=== PATIENT | male | born 1945 | race Caucasian/White ===

== ENCOUNTER → 2023-05-22 07:51 | Outpatient (REF) | payer MEDICARE, SELFPAY ==
[2023-05-22 08:32] LABS: % Basophils 1.4 % (0-2); % Eosinophils 1.4 % (0-6); % Immature Granulocytes 0.7 % (0-0.5); % Lymphocytes 25.6 % (20.5-51.1); % Monocytes 9.5 % (1.7-9.3); % Neutrophils 61.4 % (42.2-75.2); Absolute Basophils 0.1 10^3/uL (0-0.2); Absolute Eosinophils 0.1 10^3/uL (0-0.7); Absolute Immature Granulocytes 0.1 10^3/uL (0-0.05); Absolute Lymphocytes 1.9 10^3/uL (1.2-3.4); Absolute Monocytes 0.7 10^3/uL (0.1-0.6); Absolute Neutrophils 4.5 10^3/uL (1.4-6.5); Hematocrit 43.2 % (39.0-52.0); Hemoglobin 14.6 g/dL (13.0-18.0); Mean Corp Hgb Conc. 33.8 g/dL (33.0-37.0); Mean Corpuscular Hgb 29.3 pg (27.0-31.0); Mean Corpuscular Volume 86.6 fL (80.0-94.0); Mean Platelet Volume 8.9 fL (7.4-10.4); Nucleated Red Blood Cells % 0 % (-); Platelet Count 306 10^3/uL (130-400); Red Blood Cell Count 4.99 10^6/uL (4.70-6.10); Red Cell Dist. Width 13.2 % (11.5-14.5); White Blood Cell Count 7.3 10^3/uL (4.8-10.8)
[2023-05-22 09:13] LABS: ALT (SGPT) 23 U/L (0-50); AST (SGOT) 32 U/L (17-59); Albumin 4.6 g/dl (3.5-5.0); Alkaline Phosphatase 62 U/L (38-126); Blood Urea Nitrogen 22 mg/dl (9-20); Carbon Dioxide 27 mmol/L (22-30); Chloride 103 mmol/L (98-107); Glucose 109 mg/dl (70-99); HDL Cholesterol 50 mg/dl; LDL Cholesterol, Calculated 139 mg/dl; Potassium 4.3 mmol/L (3.5-5.1); Sodium 135 mmol/L (135-145); Total Bilirubin 1.2 mg/dl (0.2-1.3); Total Cholesterol 202 mg/dl (50-199); Total Protein 7.2 g/dl (6.3-8.2); Triglyceride 69 mg/dl (10-149); Very Low Density Lipoprotein 13 mg/dl (0-30); eGFR > 60.00
[2023-05-22 09:38] LABS: PSA, Total - Screen 0.89 ng/ml (0.0-4.0)
[2023-05-22 09:39] LABS: Glycohemoglobin (HgbA1c) 6.9 % (4.0-5.6)
== END ==
LOC: REG 07:51
PROVIDERS: ATTENDING PHYSICIAN Internal Medicine
DX: E78.5 Hyperlipidemia, unspecified (principal); E11.59 Type 2 diabetes mellitus with other circulatory complications; I10 Essential (primary) hypertension; Z00.00 Encounter for general adult medical examination without abnormal findings; Z12.5 Encounter for screening for malignant neoplasm of prostate
CPT/HCPCS: 36415; 80053; 80061; 83036; 85025; G0103

== ENCOUNTER → 2023-10-02 07:31 | Outpatient (REF) | payer MEDICARE, SELFPAY ==
[2023-10-02 09:25] LABS: ALT (SGPT) 18 U/L (0-50); AST (SGOT) 30 U/L (17-59); Albumin 4.6 g/dl (3.5-5.0); Alkaline Phosphatase 55 U/L (38-126); Direct Bilirubin 0.2 mg/dl (0.0-0.4); Glucose 107 mg/dl (70-99); Total Bilirubin 1.1 mg/dl (0.2-1.3); Triglyceride 65 mg/dl (10-149); Very Low Density Lipoprotein 13 mg/dl (0-30)
[2023-10-02 09:43] LABS: HDL Cholesterol 43 mg/dl; LDL Cholesterol, Calculated 121 mg/dl; Total Cholesterol 177 mg/dl (50-199)
[2023-10-02 10:41] LABS: Glycohemoglobin (HgbA1c) 6.8 % (4.0-5.6)
== END ==
LOC: REG 07:31
PROVIDERS: ATTENDING PHYSICIAN Internal Medicine
DX: E11.59 Type 2 diabetes mellitus with other circulatory complications (principal); I10 Essential (primary) hypertension; E78.5 Hyperlipidemia, unspecified
CPT/HCPCS: 36415; 80061; 80076; 82947; 83036

== ENCOUNTER → 2024-03-25 08:54 | Outpatient (REF) | payer MEDICARE, SELFPAY ==
[2024-03-25 11:07] LABS: ALT (SGPT) 21 U/L (0-50); AST (SGOT) 29 U/L (17-59); Albumin 4.7 g/dl (3.5-5.0); Alkaline Phosphatase 58 U/L (38-126); Glucose 109 mg/dl (70-99); HDL Cholesterol 45 mg/dl; LDL Cholesterol, Calculated 134 mg/dl; Total Cholesterol 198 mg/dl (50-199); Total Protein 7.1 g/dl (6.3-8.2); Triglyceride 98 mg/dl (10-149); Very Low Density Lipoprotein 19 mg/dl (0-30)
[2024-03-25 11:16] LABS: Glycohemoglobin (HgbA1c) 6.8 % (4.0-5.6)
== END ==
LOC: REG 08:54
PROVIDERS: ATTENDING PHYSICIAN Internal Medicine
DX: E11.59 Type 2 diabetes mellitus with other circulatory complications (principal); I10 Essential (primary) hypertension; E78.5 Hyperlipidemia, unspecified
CPT/HCPCS: 36415; 80061; 80076; 82947; 83036

== ENCOUNTER → 2024-06-12 09:06 | Outpatient (REF) | payer MEDICARE, SELFPAY ==
[2024-06-12 10:16] LABS: % Eosinophils 1.5 % (0-6); % Immature Granulocytes 0.9 % (0-0.5); % Lymphocytes 27.7 % (20.5-51.1); % Monocytes 7.6 % (1.7-9.3); % Neutrophils 61.3 % (42.2-75.2); Absolute Basophils 0.1 10^3/uL (0-0.2); Absolute Eosinophils 0.1 10^3/uL (0-0.7); Absolute Immature Granulocytes 0.1 10^3/uL (0-0.05); Absolute Lymphocytes 2.2 10^3/uL (1.2-3.4); Absolute Monocytes 0.6 10^3/uL (0.1-0.6); Absolute Neutrophils 4.8 10^3/uL (1.4-6.5); Hemoglobin 13.9 g/dL (13.0-18.0); Mean Corp Hgb Conc. 33.9 g/dL (33.0-37.0); Mean Corpuscular Volume 85.4 fL (80.0-94.0); Mean Platelet Volume 8.9 fL (7.4-10.4); Nucleated Red Blood Cells % 0 % (-); Platelet Count 364 10^3/uL (130-400); Red Cell Dist. Width 13.6 % (11.5-14.5); White Blood Cell Count 7.8 10^3/uL (4.8-10.8)
[2024-06-12 10:45] LABS: ALT (SGPT) 22 U/L (0-50); AST (SGOT) 27 U/L (17-59); Albumin 4.3 g/dl (3.5-5.0); Alkaline Phosphatase 57 U/L (38-126); Blood Urea Nitrogen 23 mg/dl (9-20); Calcium 10.7 mg/dl (8.4-10.2); Carbon Dioxide 24 mmol/L (22-30); Chloride 106 mmol/L (98-107); Glucose 116 mg/dl (70-99); HDL Cholesterol 38 mg/dl; LDL Cholesterol, Calculated 105 mg/dl; Potassium 4.8 mmol/L (3.5-5.1); Sodium 141 mmol/L (135-145); Total Bilirubin 0.9 mg/dl (0.2-1.3); Total Cholesterol 161 mg/dl (50-199); Triglyceride 94 mg/dl (10-149); Very Low Density Lipoprotein 18 mg/dl (0-30); eGFR > 60.00
[2024-06-13 08:29] LABS: PSA Total 1.3 ng/mL (0.0-4.0)
== END ==
LOC: RAD 09:06
PROVIDERS: ATTENDING PHYSICIAN Internal Medicine
DX: E11.59 Type 2 diabetes mellitus with other circulatory complications (principal); E78.1 Pure hyperglyceridemia; E78.5 Hyperlipidemia, unspecified; I10 Essential (primary) hypertension; E66.3 Overweight; Z12.5 Encounter for screening for malignant neoplasm of prostate
CPT/HCPCS: 36415; 80053; 80061; 83036; 84153; 84154; 85025

== ENCOUNTER 2024-08-13 23:31 | Observation (INO) | payer MEDICARE, SELFPAY ==
[2024-08-13 20:14] VITALS: BP 98/54; BMI 23.2
--- NOTE | 2024-08-13 21:18 | ED.GENMED ---
History of Present Illness
General
Chief Complaint: Fall
Source: family and ambulance crew
Exam Limitations: clinical condition
Time Seen by Provider: 08/13/24 21:13
History of Present Illness
History of Present Illness:
See MDM
Past History
Past History
ED Past Medical History: HTN and Other (Dementia)
ED Past Surgical History: None
Social History
Personal:
Phy Exam
Physical Exam
Physical Exam:
See MDM
Course
Orders/Labs/Results
Orders:
Orders
08/13/24 21:17
Electrocardiogram (*1) Urgent
Reason for Study: Fatigue / Weakness
CT Head W/o Iv Contrast Urgent
Comment:
Reason For Exam: Fall, altered
EKG- Treatment ONCE
Urinalysis Reflex To Culture Urgent
08/13/24 21:26
Complete Blood Count/With Diff Urgent
Comprehensive Metabolic Panel Urgent
Abnormal Lab Results
08/13/24
21:26
WBC 11.9 H 10^3/uL
(4.8-10.8)
RBC 4.14 L 10^6/uL
(4.70-6.10)
Hgb 12.0 L g/dL
(13.0-18.0)
Hct 35.6 L %
(39.0-52.0)
Abs Immat Gran (auto) 0.1 H 10^3/uL
(0-0.05)
Absolute Neuts (auto) 9.4 H 10^3/uL
(1.4-6.5)
Absolute Monos (auto) 0.7 H 10^3/uL
(0.1-0.6)
Immature Gran % 0.7 H %
(0-0.5)
Neutrophils % 79.3 H %
(42.2-75.2)
Lymphocytes % 13.1 L %
(20.5-51.1)
BUN 24 H mg/dl
(9-20)
Glucose 133 H mg/dl
(70-99)
Calcium 10.3 H mg/dl
(8.4-10.2)
08/13/24 21:26
08/13/24 21:26
Vital Signs
Initial and Last Documented VS:
Initial Vital Signs
Temp Pulse Resp BP Pulse Ox
98.1 F 61 15 98/54 96
08/13/24 20:14 08/13/24 20:14 08/13/24 20:14 08/13/24 20:14 08/13/24 20:14
Last Documented Vital Signs
Temp Pulse Resp BP Pulse Ox
98.1 F 57 15 98/54 96
08/13/24 20:14 08/13/24 20:14 08/13/24 20:14 08/13/24 20:14 08/13/24 20:14
MDM/Problems Addressed
Differential Diagnosis Includes:
HPI and MDM Narrative:
79-year-old male presenting for evaluation of altered mental status. at bedside stating that they went for a walk earlier today. He had 2 falls. She does not think that he hit his head. Regardless, when they got home, patient sat on the
couch and became increasingly hard to arouse. On arrival, patient was able to get off the stretcher and walk to the bed. Since then, he has been sleeping in his bed and very difficult to arouse. With very hard sternal rubbing, patient will move
quickly and move both hands. He quickly goes back to bed.
Given his altered mental status, will obtain CT head. No obvious extremity deformity noted. Will obtain basic blood work and for any evidence of metabolic abnormality. Will obtain urinalysis as well
Physical exam
General: Sleeping in bed
HEENT: protecting airway. Pupils equal reactive
Neck: supple
CV: No evidence of cyanosis
Resp: No accessory muscle use
Abd: Non-distended
Extremities: No deformities
Neuro: Sleeping. Wakes up to painful stimuli but quickly back to bed. Appears to be moving all 4 extremities when awake
Psych: Flat affect
Skin: Intact
Problems Addressed including Acute and Chronic Conditions affecting care:
1. Altered mental status
Acuity: acute
Prognosis: stable
Details: Given the fall, will obtain CT head. Will obtain basic blood work and urinalysis. Will ultimately require admission given his altered mental status
Updates
CT head negative. Blood work without clinically relevant abnormality. UA pending but will admit based on his altered mental status and increased sleepiness
Differential Diagnosis (but not limited to): Intracranial hemorrhage, stroke, hyponatremia
Testing considered: Blood cultures but he is afebrile
Drug therapy (if applicable): OTC meds, please see d/c instruction regarding Rx drugs
Amount and/or Complexity of Data Reviewed
Clinical info obtained from:
External data reviewed: N/A
Labs I independently reviewed (but not limited to): Mild leukocytosis
Radiology: The CT scan was personally and independently reviewed. In addition, official CT report reviewed.
Pulse Ox: not hypoxic
EKG independently reviewed: Sinus bradycardia, normal axis, no STEMI
[employer] Specialist: Sinus rhythm
Critical Care: N/A
Risk of Complication:
Social Determinants of health: Good social support
Discussed with other providers: Hospitalist
Escalation of Care includes Admit/Obs: Given his altered mental status, will admit
Occasional wrong word or 'sound a like' substitutions may have occurred due to the inherent limitations of voice recognition software. Read the chart carefully and recognize, using context, where substitutions have occurred.
*Critical Care Note
Total Time (30-74mins, 75-104mins- exclusive of procedures): Not Applicable
ED Attending Note
-
Portions of this chart may have been created with voice recognition software.� Occasional wrong word or��sound alike� substitutions may have occurred due to the inherent limitations of voice recognition software.
Discharge Plan
Departure
Patient Disposition: Admit
Date of Disposition: 08/13/24
Time of Disposition: 22:18
Admit to: Med/Surg
Presentation/result/management discussed w/ accepting MD/DO: Hospitalist
Discharge Problem:
Altered mental status
Referrals:
Mandeep Jones MD [Family Provider, Internal Medicine]
Interventions
Interventions:
*Risk Screen - Suicide Last Done: 08/13/24 20:14
*General Assessment Last Done: 08/13/24 20:14
*Neglect/Abuse Screening Last Done: 08/13/24 20:14
ED- Neurological Assessment Last Done: 08/13/24 21:20
ED-Skin Assessment Last Done: 08/13/24 20:14
Discharge Date and Time
Print Language: SWEDISH
[2024-08-13 21:32] LABS: % Basophils 0.7 % (0-2); % Eosinophils 0.3 % (0-6); % Immature Granulocytes 0.7 % (0-0.5); % Lymphocytes 13.1 % (20.5-51.1); % Monocytes 5.9 % (1.7-9.3); % Neutrophils 79.3 % (42.2-75.2); Absolute Basophils 0.1 10^3/uL (0-0.2); Absolute Immature Granulocytes 0.1 10^3/uL (0-0.05); Absolute Lymphocytes 1.6 10^3/uL (1.2-3.4); Absolute Monocytes 0.7 10^3/uL (0.1-0.6); Absolute Neutrophils 9.4 10^3/uL (1.4-6.5); Hematocrit 35.6 % (39.0-52.0); Mean Corp Hgb Conc. 33.7 g/dL (33.0-37.0); Mean Platelet Volume 9.3 fL (7.4-10.4); Nucleated Red Blood Cells % 0 % (-); Platelet Count 295 10^3/uL (130-400); Red Blood Cell Count 4.14 10^6/uL (4.70-6.10); Red Cell Dist. Width 14.2 % (11.5-14.5); White Blood Cell Count 11.9 10^3/uL (4.8-10.8)
[2024-08-13 21:49] LABS: ALT (SGPT) 18 U/L (0-50); AST (SGOT) 22 U/L (17-59); Albumin 4.3 g/dl (3.5-5.0); Alkaline Phosphatase 44 U/L (38-126); Blood Urea Nitrogen 24 mg/dl (9-20); Calcium 10.3 mg/dl (8.4-10.2); Carbon Dioxide 22 mmol/L (22-30); Chloride 107 mmol/L (98-107); Estimated Creatinine Clearance 50 ml/min; Glucose 133 mg/dl (70-99); Potassium 4.8 mmol/L (3.5-5.1); Sodium 135 mmol/L (135-145); Total Bilirubin 0.8 mg/dl (0.2-1.3); Total Protein 6.6 g/dl (6.3-8.2); eGFR 55.53
--- NOTE | 2024-08-13 22:19 | HPS.HSE ---
Addendum entered and electronically signed by Bigg Chapman DO 08/13/24 23:59:
Patient seen and examined independently. Agree with findings and plan as set forth by DEV Billings.
Patient is an 79y M with PMH significant for hypertension, DM-II and dementia with behavioral disturbance who presents to ED for evaluation of poor responsiveness. History obtained from at the bedside. notes that patient had fall x 2
today while walking their dogs in the grass. No evident / significant injury at the time. No LOC or witnessed head impact. They returned home and patient fell asleep on the couch. Some time later, went to check on patient and was unable to
wake him. 911 ws called and patient brought to the ED for further evaluation.
In the ED, patient is unresponsive at times - with only grimace / slight movement to noxious stimuli. At other times (as when staff attempting to change him), he becomes fully awake, agitated and combative.
states that patient has been having increasing memory issues and change in behavior over the past 6-9 months. He is aggressive at home at times.
His PCP started him on risperidone about 3 weeks ago. He seems more calm with this medication; however, he sometimes refuses his dose. He did take this last PM.
Ass:
Altered Level of Consciousness
Senile Dementia with Behavioral Disturbance
Fall
Benign Hypertension
DM-II
OAB
Plan:
Admit for further evaluation and treatment.
CT head in the ED with atrophy but no acute findings.
Fluctuating level of consciousness appreciated in the ED with agitation at times.
Hold antihypertensive medications given low normal BP.
Follow glucose and cover with SSI if needed (on no meds for DM at home).
Monitor for agitation - Zyprexa PRN.
Psych evaluation for additional recommendations.
Follow for any new / focal symptoms.
Original Note:
Family Physician
-
Family Physician: Keaton Jones
Chief Complaint
-
altered mental status
History of Present Illness
Patient is a 79-year-old male with past medical history significant for hypertension, overactive bladder, type 2 diabetes and high triglycerides who presented to [facility] ED for evaluation of altered mental status. Patient is somnolent and at
bedside who assist with HPI. She reports that over the past 6-9 months patient has increased memory and behaviors and she believes he has undiagnosed dementia. Patient today was on a walk with spouse and dogs when he had 2 mechanical falls, with
difficulty getting up, spouse was able to assist him up and got him home where he had a difficult time getting up from sitting position and had some generalized weakness when walking. She describes a more shuffled gait today. In the last several
weeks to months she has observed patient unplugging anything with lights on at night (i.e red light on TV when off, her hearing aides when charging, etc.), pouring milk over cheez-it's to eat like cereal and not wanting trash can at street despite
it being full and awaiting seed cone picker later that day. She reports aggressive behaviors that were happening almost daily where he would act like he was going to punch or would shove her, behavior would resolve within minutes generally. Primary care
prescribed risperidone 0.5mg qHS and spouse has noticed improvement in behaviors to a few times a week verse daily but does report some nights he gives her a hard time and will not take the medication. She denies any recent illness, fever, chills,
cough, shortness of breath, chest pain, nausea, vomiting, constipation, diarrhea or urinary symptoms.
Medical History
Past Medical History
Past Medical History: Reports Other
Additional Past Medical History:
hypertension
overactive bladder
high triglycerides
type 2 diabetes
Past Surgical History: Reports None
Social History
Tobacco: Non-smoker
Personal:
Living: With Family
Family History
Family History: Not pertinent
Allergies / Home Medications
Allergies reflects when Allergies were last updated in [facility].
Home Medications with original date entered in [facility]
Allergy/Medication List:
Allergies
Allergy/AdvReac Type Severity Reaction Status Date / Time
NKA - No Known Allergies Allergy Unknown Uncoded 06/02/22 20:13
Home Medications
aspirin 81 mg tablet,delayed release 81 mg DAILY 08/13/24
fenofibrate 08/13/24
losartan 08/13/24
oxybutynin 3.9 mg/24 hour transdermal 4 day patch 08/13/24
risperidone 0.5 mg tablet 0.5 mg HS 08/13/24
Review of Systems
-
History Source: Patient
Constitutional: Reports No Symptoms
EENT: Reports No Symptoms
Respiratory: Reports No Symptoms
Cardiac: Reports No Symptoms
Abdomen/GI: Reports No Symptoms
: Reports No Symptoms
Musculoskeletal: Reports Other (abnormal gait with 2 falls today )
Skin: Reports No Symptoms
Neurological: Reports No Symptoms
Endocrine: Reports No Symptoms
Hematologic/Lymphatic: Reports No Symptoms
Psych: Reports Anxiety, Dementia and Other (aggressive behaviors with spouse and ED staff )
Physical Exam
Vital Signs
Vital Signs
Temp Pulse Resp BP Pulse Ox
98.1 F 57 15 98/54 96
08/13/24 20:14 08/13/24 20:14 08/13/24 20:14 08/13/24 20:14 08/13/24 20:14
Physical Exam
General: Well Developed, Well Nourished, No Apparent Distress and Slurred Speech
HEENT: NormoCephalic, Moist mucous membranes, Atraumatic, Nose Appears Normal and Ears Appear Normal
Respiratory: Clear
Cardiac: S1/S2 and Regular Rhythm; No Murmur or Rub
Breast: Deferred by me
GI: Soft, Non Tender, Non Distended and Normal Bowel Sounds; No Organomegaly
Rectal: Deferred by Provider
Genito-urinary: Deferred by me
Musculoskeletal: No Clubbing, No Cyanosis and No Edema
Skin: Warm, Dry and IV/Catheter Site
Neuro: Sedated (difficult to arouse)
Psych: Agitated (aggressive with staff when able to arouse )
Laboratory Results
-
08/13/24 21:26
08/13/24:
Laboratory Results
Total Bilirubin 0.8 mg/dl (0.2-1.3) 08/13/24:
AST 22 U/L (17-59) 08/13/24:
ALT 18 U/L (0-50) 08/13/24:
Alkaline Phosphatase 44 U/L (38-126) 08/13/24:
Data Reviewed
-
CT Scan: Report Reviewed by me (Head: No acute intracranial abnormalities. Findings again seen compatible with diffuse cortical atrophy with nonspecific white matter changes as described above.)
Medical Tests (Nuc Med, Echo, EKG etc): Report Reviewed by me (EKG; SINUS BRADYCARDIA WITH 1ST DEGREE A-V BLOCK OTHERWISE NORMAL ECG)
Lab Data: Labs Reviewed by me (BUN 24, Creat 1.3, est CrCl 50, eGFR 55.53)
Impression/Plan
-
IMPRESSION/PLAN:
#altered mental status
Head CT: No acute intracranial abnormalities.
Findings again seen compatible with diffuse cortical atrophy with nonspecific white matter changes as described above.
EKG: SINUS BRADYCARDIA WITH 1ST DEGREE A-V BLOCK
OTHERWISE NORMAL ECG
- Admit to med/surg
- Consult Psych
- PRN Haldol and Zyprexa for agitation
#hypertension
- continue losartan
#overactive bladder
- continue oxybutynin
#high triglycerides
- continue fenofibrate
#type 2 diabetes
- diet controlled
Code status: DNR
DVT prophylaxis: Lovenox sq
[2024-08-13 22:20] VITALS: BP 146/76
[2024-08-13 23:01] VITALS: BP 90/60
--- NOTE | 2024-08-13 23:19 | EDRN ---
Jason Del Real [facility] [phone].
[2024-08-14] VITALS (9 sets, daily range): BP systolic 81–120; BP diastolic 49–64; PULSE 74; BMI 22.3
[2024-08-14] MEDS: NSS 1000 IV ×2 (00:18→09:07)
[2024-08-14 06:22] LABS: Hematocrit 35.8 % (39.0-52.0); Hemoglobin 11.8 g/dL (13.0-18.0); Mean Platelet Volume 9.2 fL (7.4-10.4); Platelet Count 287 10^3/uL (130-400); Red Blood Cell Count 4.07 10^6/uL (4.70-6.10); Red Cell Dist. Width 14.5 % (11.5-14.5); White Blood Cell Count 8.9 10^3/uL (4.8-10.8)
[2024-08-14 07:19] LABS: Blood Urea Nitrogen 23 mg/dl (9-20); Calcium 9.8 mg/dl (8.4-10.2); Carbon Dioxide 20 mmol/L (22-30); Chloride 111 mmol/L (98-107); Estimated Creatinine Clearance 59 ml/min; Glucose 95 mg/dl (70-99); Sodium 137 mmol/L (135-145); eGFR > 60.00
[2024-08-14 08:58] LABS: Urine Albumin 1+ (Neg - Trace); Urine Bilirubin Negative (Negative); Urine Character Clear (Clear); Urine Color Yellow; Urine Glucose Negative (Negative); Urine Ketone Negative (Negative); Urine Leukocyte Negative (Negative); Urine Nitrite Negative (Negative); Urine Occult Blood Negative (Negative); Urine Urobilinogen Negative (Neg - 1+)
[2024-08-14] MEDS: ASPIR LOW (ENTERIC COATED) 81 MG PO (09:07)
[2024-08-14 09:14] LABS: Urine Hyaline Cast 0-2 /LPF (0-2); Urine Squamous Cell 0-2 /LPF (Few)
[2024-08-14 09:15] LABS: Urine Red Blood Cell 0-2 /HPF (0-2); Urine White Cell 0-2 /HPF (0-5)
--- NOTE | 2024-08-14 11:15 | CS.PSYCHR ---
Consult Summary - Psychiatry
-
Pt is an 79 y0 male PMH of hypertension, DM-II and dementia with behavioral disturbance who presented to ED for evaluation of poor responsiveness. provided history, reported that patient had fall x 2 while walking their dogs in the grass,
with no apparent injury. Pt later sleeping on the couch and unable to wake him. In the ED, patient noted to be mostly unresponsive at times, then at other times becomes fully awake, agitated and combative.
reported pt has had increasing memory issues and change in behavior over the past 6-9 months. PCP reportedly started pt on Risperidone about 3 weeks ago, with some improvement, more calm. QTc 419 on 08/13/24.
Pt seen, awake, alert, calm, sitting up in chair, making eye contact. Pt shook my hand, was cooperative, tried to answer questions, but speech was incoherent, rambling. Pt unable to give an meaningful information.
Psych Hx: no noted
SH: , living with
MSE: awake/alert, sensorium appears intact, making good eye contact, answering but unable to give any meaningful information, rambling/irrelevant content. No agitation at present. Mood/affect stable.
Imp: Dementia, progressive, with behavior disturbance; R/o superimposed delirium
Rec: agree with continuing Risperidone. Zyprexa IM could be helpful for agitation if po med refused- dose range 2.5 to 5 mg Q 6 to 8 hours.
Will follow
--- NOTE | 2024-08-14 12:34 | CM ---
Reviewed the chart notes and spoke with the patient's spouse via telephone. The patient is admitted under observational status. The [employer] letter was explained to the spouse and a copy left with the patient's belongings in the room. The patient's
spouse had no questions with regards to the letter.
The patient resides with his spouse in a split level home with five steps to enter via front door. The patient's spouse reports no DME/VN/SNF in the past. The patient's pharmacy of choice is the [facility]. continues to be
available to patient/family and is monitoring medical plan for needs at discharge.
Plan: Discharge plans will depend on the patient's progress.
--- NOTE | 2024-08-14 14:52 | W.DCSUMMARY ---
Discharge Summary
Discharge Data
Date of Admission: 08/13/24
Date of Discharge: 08/14/24
Total time spent discharging patient (in min): 40
-
Pending Results: No
Hospital Course
Mr. Blunt is an 79-year-old male with a medical history of dementia with behavioral disturbance and hypertension who presented after an episode of decreased responsiveness at home. He had multiple falls at home earlier in the day on their lawn
while walking the dogs. He did not lose consciousness or hit his head during those falls. Later in the day the patient was asleep on the couch and his was unable to wake him up which prompted her to call EMS. He has had increasing memory
loss and associated behavioral disturbances over the past 6 to 9 months. He was recently started on risperidone by his PCP approximately 3 weeks prior to this admission. Reportedly, he has been calmer since starting risperidone. CT imaging of his
brain in the ED shows no acute abnormalities. His labs were generally normal except for a mild leukocytosis of 12,000 which resolved on repeat without any specific interventions other than a liter of normal saline. His blood pressure was on the
low side with a systolic blood pressure around 100 and so his home losartan was held. He remained agitated and somnolent but arousable the evening of admission. However, the next morning he was awake and alert. He was conversational and
cooperative with staff although he was significantly confused which is his reported baseline recently. He was evaluated by psychiatry while inpatient who recommended continuing risperidone. This episode is likely a progression of his known
dementia. It would be reasonable to monitor him off of his blood pressure medications at this time in order to minimize hypotension and falls. His oxybutynin was also held as it can contribute to mental status changes. The need for these
medications can be reevaluated in outpatient setting by his primary care physician. He was evaluated by physical therapy during this hospitalization who felt he had no skilled needs at this time. He is medically stable for discharge to home.
General: No Apparent Distress, Comfortable and Conversant
HEENT: NormoCephalic, Moist mucous membranes, Atraumatic
Respiratory: Clear and Non Labored Respirations
Cardiac: S1/S2 and Regular Rhythm; No Rub or Gallop
GI: Soft, Non Tender, Non Distended and Normal Bowel Sounds
Musculoskeletal: No Edema, no deformity
: NO Duval
Neuro: Awake, Alert, confused
Psych: Calm, cooperative
Discharge Plan
-
Patient Disposition: Home (Routine Discharge)
Discharge Diagnosis/Procedures: Acute metabolic encephalopathy
Diet: Regular
Activity: As tolerated
Activity Restrictions/Additional Instructions:
Mr. Blunt is an 79-year-old male with a medical history of dementia with behavioral disturbance and hypertension who presented after an episode of decreased responsiveness at home. He had multiple falls at home earlier in the day on their lawn
while walking the dogs. He did not lose consciousness or hit his head during those falls. Later in the day the patient was asleep on the couch and his was unable to wake him up which prompted her to call EMS. He has had increasing memory
loss and associated behavioral disturbances over the past 6 to 9 months. He was recently started on risperidone by his PCP approximately 3 weeks prior to this admission. Reportedly, he has been calmer since starting risperidone. CT imaging of his
brain in the ED shows no acute abnormalities. His labs were generally normal except for a mild leukocytosis of 12,000 which resolved on repeat without any specific interventions other than a liter of normal saline. His blood pressure was on the
low side with a systolic blood pressure around 100 and so his home losartan was held. He remained agitated and somnolent but arousable the evening of admission. However, the next morning he was awake and alert. He was conversational and
cooperative with staff although he was significantly confused which is his reported baseline recently. He was evaluated by psychiatry while inpatient who recommended continuing risperidone. This episode is likely a progression of his known
dementia. It would be reasonable to monitor him off of his blood pressure medications at this time in order to minimize hypotension and falls. His oxybutynin was also held as it can contribute to mental status changes. The need for these
medications can be reevaluated in outpatient setting by his primary care physician. He was evaluated by physical therapy during this hospitalization who felt he had no skilled needs at this time. He is medically stable for discharge to home.
Referrals:
Mandeep Jones MD [Family Provider, Internal Medicine]
Prescriptions:
Continued
aspirin 81 mg Tablet,Delayed Release (Dr/Ec)
81 mg DAILY
risperidone 0.5 mg Tablet
0.5 mg HS
fenofibrate
Held
oxybutynin 3.9 mg/24 hour Patch 4 Day
Hold Instructions: Hold for now as it can contribute to mental status changes, can be restarted if appropriate after consultation with PCP or urologist
losartan
Hold Instructions: Hold for now until outpatient monitoring of blood pressure, can restart as needed
Discharge Orders:
Discharge Patient (As Directed); Ordered 08/14/24
Ordered By: Jose R Cheney
Discharge Date and Time
Print Language: KENYAN
--- NOTE | 2024-08-15 07:20 | EDRN ---
No nursing care provided to this pt by this nurse
== END 2024-08-14 15:40 | disposition home or self-care (01) ==
LOC: 2 NORTH 23:31
PROVIDERS: Nurse Practitioner Family; ADMITTING PHYSICIAN Hospitalist; ATTENDING PHYSICIAN Internal Medicine; EMERGENCY PHYSICIAN Student in an Organized Health Care Education/Training Program; FAMILY PHYSICIAN Internal Medicine; OTHER PHYSICIAN Psychiatry & Neurology Psychiatry
DX: G93.41 Metabolic encephalopathy (principal); F03.918 Unspecified dementia, unspecified severity, with other behavioral disturbance; R53.83 Other fatigue; R53.1 Weakness; R29.6 Repeated falls; F03.911 Unspecified dementia, unspecified severity, with agitation; N32.81 Overactive bladder; I10 Essential (primary) hypertension; R26.9 Unspecified abnormalities of gait and mobility; G31.9 Degenerative disease of nervous system, unspecified; E78.1 Pure hyperglyceridemia; R00.1 Bradycardia, unspecified; E11.9 Type 2 diabetes mellitus without complications; W01.0XXA Fall on same level from slipping, tripping and stumbling without subsequent striking against object, initial encounter; Y93.K1 Activity, walking an animal; Y92.89 Other specified places as the place of occurrence of the external cause; Z91.148 Patient's other noncompliance with medication regimen for other reason; Z79.82 Long term (current) use of aspirin; Z79.899 Other long term (current) drug therapy; Z66 Do not resuscitate
CPT/HCPCS: 70450; 80048; 80053; 81003; 81015; 85025; 85027; 87086; 93005; 97162; 99285; G0378

== ENCOUNTER 2024-08-29 21:10 | Emergency (ER) | payer MEDICARE, SELFPAY ==
[2024-08-29 21:18] VITALS: BP 124/73
[2024-08-29 21:20] VITALS: BMI 22.6
[2024-08-29 21:48] LABS: % Basophils 1.1 % (0-2); % Eosinophils 1.8 % (0-6); % Immature Granulocytes 1.2 % (0-0.5); % Lymphocytes 27.7 % (20.5-51.1); % Monocytes 9.5 % (1.7-9.3); % Neutrophils 58.7 % (42.2-75.2); Absolute Basophils 0.1 10^3/uL (0-0.2); Absolute Eosinophils 0.2 10^3/uL (0-0.7); Absolute Immature Granulocytes 0.1 10^3/uL (0-0.05); Absolute Lymphocytes 2.6 10^3/uL (1.2-3.4); Absolute Monocytes 0.9 10^3/uL (0.1-0.6); Absolute Neutrophils 5.6 10^3/uL (1.4-6.5); Hematocrit 37.3 % (39.0-52.0); Hemoglobin 12.9 g/dL (13.0-18.0); Mean Corp Hgb Conc. 34.6 g/dL (33.0-37.0); Mean Corpuscular Hgb 29.5 pg (27.0-31.0); Mean Corpuscular Volume 85.4 fL (80.0-94.0); Mean Platelet Volume 8.9 fL (7.4-10.4); Nucleated Red Blood Cells % 0 % (-); Platelet Count 292 10^3/uL (130-400); Red Blood Cell Count 4.37 10^6/uL (4.70-6.10); Red Cell Dist. Width 14.6 % (11.5-14.5); White Blood Cell Count 9.5 10^3/uL (4.8-10.8)
[2024-08-29 21:59] LABS: ALT (SGPT) 18 U/L (0-50); AST (SGOT) 23 U/L (17-59); Albumin 4.6 g/dl (3.5-5.0); Alkaline Phosphatase 52 U/L (38-126); Blood Urea Nitrogen 15 mg/dl (9-20); Calcium 10.7 mg/dl (8.4-10.2); Carbon Dioxide 24 mmol/L (22-30); Chloride 105 mmol/L (98-107); Estimated Creatinine Clearance 63 ml/min; Glucose 136 mg/dl (70-99); Potassium 4.3 mmol/L (3.5-5.1); Sodium 137 mmol/L (135-145); Total Bilirubin 0.7 mg/dl (0.2-1.3); Total Protein 7.1 g/dl (6.3-8.2); eGFR > 60.00
--- NOTE | 2024-08-30 00:08 | EDRN ---
Patient changed into scrubs since his clothes were soiled, patient in a wheelchair and wheeled out with who will be taking him home.
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
--- NOTE | 2024-08-30 10:07 | CM ---
Received CM consult from overnight, I called and spoke to pt's Julia. Per Julia this is the first time pt has left the house at night. She has been looking in to LTC, has toured [facility] and has an application. Her daughter in law also
gave her information from [facility]. I gave her the number for [facility] and also [facility].
She plans to continue to research LTC facilities in the area.
== END 2024-08-30 00:14 | disposition home or self-care (01) ==
LOC: EMR 21:10
PROVIDERS: Nurse Practitioner; EMERGENCY PHYSICIAN Student in an Organized Health Care Education/Training Program; FAMILY PHYSICIAN Internal Medicine
DX: F03.90 Unspecified dementia, unspecified severity, without behavioral disturbance, psychotic disturbance, mood disturbance, and anxiety (principal); I10 Essential (primary) hypertension
CPT/HCPCS: 99284; 70450; 80053; 85025

== ENCOUNTER 2024-09-13 16:23 | Observation (INO) | payer MEDICARE, SELFPAY ==
[2024-09-12 18:36] VITALS: BP 152/85
[2024-09-12] MEDS: HALDOL 5 MG IM (21:04)
[2024-09-12] MEDS: ATIVAN 2 MG IM (21:04)
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
[2024-09-12 21:49] LABS: Hematocrit 35.6 % (39.0-52.0); Hemoglobin 12.1 g/dL (13.0-18.0); Mean Corp Hgb Conc. 34.0 g/dL (33.0-37.0); Mean Corpuscular Volume 85.2 fL (80.0-94.0); Nucleated Red Blood Cells % 0 % (-); Platelet Count 285 10^3/uL (130-400); Red Cell Dist. Width 14.4 % (11.5-14.5)
[2024-09-12 22:21] LABS: ALT (SGPT) 15 U/L (0-50); AST (SGOT) 21 U/L (17-59); Albumin 4.1 g/dl (3.5-5.0); Alkaline Phosphatase 53 U/L (38-126); Blood Urea Nitrogen 17 mg/dl (9-20); Calcium 9.5 mg/dl (8.4-10.2); Carbon Dioxide 22 mmol/L (22-30); Chloride 106 mmol/L (98-107); Glucose 147 mg/dl (70-99); Potassium 4.1 mmol/L (3.5-5.1); Sodium 136 mmol/L (135-145); Total Protein 6.4 g/dl (6.3-8.2); eGFR > 60.00
--- NOTE | 2024-09-13 03:00 | EDRN ---
Report received, patient is waiting for case management to see them in the morning, patient is sleeping at this time.
--- NOTE | 2024-09-13 06:14 | EDRN ---
Patient trying to get pants down, patient very incontinent to urine, patient's personal clothes removed and placed in a bag, patient cleaned up, new linen placed on bed along with jeffery pads, patient provided with warm blankets, patient is fighting
during this and trying to swing at staff, however patient was able to be changed into clean dry things. Will continue to monitor patient, patient back to sleep at this time.
--- NOTE | 2024-09-13 06:56 | EDRN ---
Spoke with patient's , Julia, , who informed me that herself and the daughter took the patient to [facility] yesterday and filled out paperwork and left his medications that he is on at home for them there, informed her that case
management is suppose to see him and help facilitate patient going back to [facility]. Informed she is welcome to call back to get an update.
informed me that patient likes to go by 'Andrea'
[2024-09-13 10:40] VITALS: BP 143/81
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
[2024-09-13] MEDS: ATIVAN 2 MG IM (11:30)
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
[2024-09-13 16:24] VITALS: BP 128/69
[2024-09-13 17:52] VITALS: BP 163/89
[2024-09-13] MEDS: LOVENOX SC (20:26)
[2024-09-13] MEDS: RISPERDAL PO (20:33)
[2024-09-13 23:10] VITALS: BP 160/80
[2024-09-14 07:20] VITALS: BP 146/86
[2024-09-14] MEDS: HALDOL 2 MG IM (08:05)
[2024-09-14] MEDS: TRICOR PO (09:13)
[2024-09-14] MEDS: ASPIR LOW (ENTERIC COATED) PO (09:13)
--- NOTE | 2024-09-14 10:04 | CM ---
Addendum entered by Karolina Barrera 09/14/24 16:05:
Spoke with Franky Acevedo at [facility] care & updated him that psychiatry adjusted medications currently. He stated to call him once patient is ready for discharge at [phone] so he can give the facility notice.
CM faxed the signed Documentation of Medical evaluation to [facility] fax #: [phone] (in chart)
Per Franky Medical Evaluation [facility] at [facility]
PLAN: [facility] when stable
Report #: [phone] (EMILEE Verdugo)
Fax #: [phone]
Original Note:
Spoke with Franky Gavin at [facility] - [phone]
Await psychiatry consult
Patient to discharge to [facility]
Franky emailed Medical Eval for hospitalist to complete as well as Documentation of Medical Evaluation to be completed
Will have hospitalist complete along with medications patient is receiving - need to fax to [phone]
Per Franky POLST will be completed at [facility]
PLAN: [facility]
Report #: [phone] (EMILEE Verdugo)
Fax #: [phone]
--- NOTE | 2024-09-14 12:37 | CON.MD ---
Consultation - Medical
-
patient seen chart reviewed. this consult done today september 14 2024. the patient is an 79 year old male who was referred from [facility] bc of agitation . he had been there only five hours [facility] not have
any med orders for him and attempted a 302 which was denied and he was sent to er . no dispo could be found so he ended up being admitted. he was very combative in er and received haldol 5 mg im as well as ativan 2 mg. he was agitated this am and
received another dose of ativan 2 mg and haldol 2 mg. he is now not combative but s/w restless and constantly fiddling with sheets, blankets, getting up and walking about the room although he is somewhat unsteady (reportedly better re steadiness
since this am). the patient has hx dementia. reportedly was rx with risperdal 2 mg but unclear if he was actually taking it. he has been refusing meds here. i attempted to call his at both numbers we have for her both home and cell but no
answer left message. cat brain shows significant atrophy and small vessel disease labs so far not very remarkable with hgb 12.1 glucose 147 but not fasting. do not see ua on chart the patient was unable to answer any questions including his name
place or time. he did tell me he has four kids (unclear if this is true).
past psych hx dementia unclear if patient has prior psych hx according to dr ramirez's note no prior psych and he also notes said patient's behavior deteriorating in past year. he was started on risperdal in the spring
past medical hx hx htn dm urge incontinence hypercalcemia benign colon polyp hld hearing loss gerd patient may be exhibiting akathisia from haldol received earlier bp 146/86 pulse and resp wnl
fh non contributory
substance abuse likely not
social resides with family. retired. patient does have kids one of whom was here earlier today and seemed according to cm supportive
mse patient rambling about room with staff in tow . fidgeting with blankets towel and whatever he could grasp. disoriented x3 unable to engage in any meaningful conversation mood /affect seem labile insight judgment lacking.
dx dementia w behavioral disturbance
plan cannot send to psych hosp without a 302... grounds could be inability to care and it would need to be likely two physician 302 as it was already turned down yesterday by the delegate. a demented patient cannot sign in and medical poa cannot
sign in to psych facility given our laws in [place]. patient is not taking po reliably but we might try orally dissolving tabs. would try first a standing zydis order if we can get him to take it. try zydis 2.5 mg bid. zydis would be less likely to
aggravate akathisia if indeed he has akathisia. the restlessness could also just be part of his dementia.. asked dr jain via [facility] if we could use prn inderal iv for agitation as well or perhaps to see if it would calm him via its anti akathisia
properties. check b12 folate vit d and tsh reflex to t4. would get ua reflex to culture. will follow
--- NOTE | 2024-09-14 12:47 | W.PN.HOSP.TC ---
Today's Communication/Plan
-
Monitor vital signs
see plan
Discussed with psychiatry, will need medications to stabilize his agitation prior to discharge
Now on olanzapine, risperidone
Assessment / Plan
Assessment / Plan
General: Well Developed, Well Nourished and No Apparent Distress
HEENT: NormoCephalic, Moist mucous membranes and Atraumatic
Respiratory: Clear
Cardiac: S1/S2 and Regular Rhythm; No Murmur or Rub
GI: Soft, Non Tender, Non Distended and Normal Bowel Sounds
Musculoskeletal: No Edema
Neuro: AO x 1-2,non focal
Psych: Calm
Dementia with behavioral disturbance
Continue with risperidone if able, Zyprexa as needed
Has received IV Haldol. Discussed with psychiatry. Patient will need mood stabilizers prior to discharge
-risperidone continued, Zyprexa
-Zyprexa added prn for agitation
History of hypertension
Used to be on losartan, does have periods of hypotension as well. Will monitor
high triglycerides
- continue fenofibrate
Code status: full code; on last admission was DNR; will need to confirm. called spouse, left voicemail
DVT prophylaxis: Lovenox sq
Anticipated Discharge: Within 24 hours
Subjective/Interval History
-
Date of Service: September 14, 2024
agitated this morning
Objective Data
-
Vital Signs:
Vital Signs
Temp Pulse Resp BP Pulse Ox
98.0 F 84 16 146/86 98
09/14/24 07:20 09/14/24 07:20 09/14/24 07:20 09/14/24 07:20 09/14/24 07:20
[2024-09-14] MEDS: ZYPREXA 2.5 MG PO (12:58)
[2024-09-14 13:49] LABS: Vitamin D, 25-OH*** 29.0 ng/mL (30-80)
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
[2024-09-14 14:39] LABS: Folate > 20.0 ng/ml (2.76-20)
[2024-09-14 14:56] LABS: Urine Character Clear (Clear)
--- NOTE | 2024-09-14 15:06 | W.PN.UPDATE ---
Update Note
Progress Note Update
returned to see patient to assess how he had fared with am ana lilialeha. he was calmly seated. he was picking at a piece of fabric he held in his hands. he has a one to one staff at present and was overall cooperative. given what told me this am i
am leaning away from akathisia secondary to haldol. he seems to have been a very active man who is used to and enjoys moving around. it could be difficult to find that fine line which will allow him to move around and have him still be safe vis a
vis falling. would give the ronny a few days for work for now. total time in evaluation including review of chart talking to hospitalist staff and family over one hour
[2024-09-14 15:14] LABS: Urine Squamous Cell 0-2 /LPF (Few)
[2024-09-14 15:15] LABS: Urine Urothelial Cell 0-2 /LPF (FEW)
[2024-09-14 15:16] LABS: Urine White Cell 0-2 /HPF (0-5)
[2024-09-14 15:37] VITALS: BP 152/93
[2024-09-14 15:46] LABS: Vitamin B12 535 pg/ml (239-931)
[2024-09-14] MEDS: LOVENOX SC (18:03)
[2024-09-14] MEDS: RISPERDAL 2 MG PO (19:55)
[2024-09-14] MEDS: ZYPREXA ZYDIS (ORALLY DISINTEGRATING) 2.5 MG PO (19:55)
--- NOTE | 2024-09-14 20:01 | PTCARENOTE ---
combative uncooperative will not keep close on. romas about the room . at times follows simple commands other times uncooperative and combative. knows his name but confused and not oreinted to time or place. voided in bathroom.
--- NOTE | 2024-09-14 20:26 | PTCARENOTE ---
pt unable/unwilling/combative for ekg ordered earlier
--- NOTE | 2024-09-14 20:57 | PTCARENOTE ---
pt took po meds- refuses hs care- still very restless. roams about the room. combative when attempt to do most care-
[2024-09-14] MEDS: ZYPREXA 2.5 MG IM (21:24)
--- NOTE | 2024-09-14 21:34 | PTCARENOTE ---
pt started punching at staff when attempting to get bp- unable to calm down- almost fell- im Zyprexa given. see mar
[2024-09-14 23:43] VITALS: BP 138/86
[2024-09-15] MEDS: ZYPREXA 2.5 MG PO ×2 (01:31→17:42)
--- NOTE | 2024-09-15 01:33 | PTCARENOTE ---
pt varies between restless sleep- inc of urine- kicking staff when getting changed- will not keep gown or blankets on. po zyprexa prn given for agitation
[2024-09-15] MEDS: STERILE WATER FOR INJECTION 2.1 ML IM ×2 (03:24→20:59)
[2024-09-15] MEDS: ZYPREXA 2.5 MG IM ×2 (03:24→20:59)
--- NOTE | 2024-09-15 03:30 | PTCARENOTE ---
pt hoitting kicking scratching staff- was unsteady and unsafe on his feet- hard to manage and keep safe- housekeeping/laundry supervisor ordered zyprexa see mar
[2024-09-15] MEDS: ZYPREXA ZYDIS (ORALLY DISINTEGRATING) 2.5 MG PO (07:12)
[2024-09-15] MEDS: TRICOR PO (07:17)
[2024-09-15] MEDS: ASPIR LOW (ENTERIC COATED) PO (07:17)
[2024-09-15 07:46] VITALS: BP 113/71
--- NOTE | 2024-09-15 07:57 | PTCARENOTE ---
Pt in bed @ 0700, asleep. Awoke with episode of incontinence, immediately restless. Attempts to punch and kick staff as they get close to change patient. Pt cleaned and changed. Does not follow commands. Unable to demonstrate orientation but does
make eye contact to name. Attempted to give PO Aspirin and Tricor; pt spit out even after seeming to agree to taking them. Orally disintegrating Zyprexa given without issue.
--- NOTE | 2024-09-15 10:54 | W.PN.HOSP.TC ---
Today's Communication/Plan
-
Monitor vital signs see plan
Still agitated overnight
On Zyprexa, risperidone
Psychiatry following
Eventual discharge to [facility] when calm
Assessment / Plan
Assessment / Plan
General: Well Developed, Well Nourished and No Apparent Distress
HEENT: NormoCephalic, Moist mucous membranes and Atraumatic
Respiratory: Clear
Cardiac: S1/S2 and Regular Rhythm; No Murmur or Rub
GI: Soft, Non Tender, Non Distended and Normal Bowel Sounds
Musculoskeletal: No Edema
Neuro: AO x 1-2,non focal
Psych: Agitated
Dementia with behavioral disturbance
Continue with risperidone if able, Zyprexa as needed
Has received IV Haldol. Discussed with psychiatry. Patient will need mood stabilizers prior to discharge
-risperidone continued, Zyprexa
-Zyprexa added prn for agitation
History of hypertension
Used to be on losartan, does have periods of hypotension as well. Will monitor
Mild vitamin D deficiency
Started vitamin D
high triglycerides
- continue fenofibrate
Code status: full code; on last admission was DNR; will need to confirm. called spouse, left voicemail
DVT prophylaxis: Lovenox sq
Eventual discharge to [facility]
Anticipated Discharge: 24 - 48 hours
Subjective/Interval History
-
Date of Service: September 15, 2024
Agitated at times
Objective Data
-
Vital Signs:
Vital Signs
Temp Pulse Resp BP Pulse Ox
97.0 F 98 18 113/71 97
09/15/24 07:46 09/15/24 07:46 09/15/24 07:46 09/15/24 07:46 09/15/24 08:16
I&O
09/14/24 09/15/24 09/16/24
06:59 06:59 06:59
Intake Total 520 / 520
Balance 520 / 520
[2024-09-15] MEDS: OSCAL 500 + D PO (12:03)
--- NOTE | 2024-09-15 13:13 | W.PN.UPDATE ---
Update Note
Progress Note Update
Pt seen at bedside, chart reviewed. Sleeping at the time , though restlessly. Remains intermittently agitated, overall with some improvement and at times can be redirectable, however still difficult to manage behaviors when acute. Pt also remains
restlessness, when not sleeping is described as pacing or fidgeting - to note, even while he is sleeping he can be seen fidgeting and moving feet around restlessly.
Pt recently started on olanzapine 2.5mg BID which seems to have been helping thus far, however is also taking risperidone 2mg HS which is likely contributing to akathisia given increased risk of such when combining 2 antipsychotics.
- discontinued risperidone 2mg HS, adjusted olanzapine to 2.5mg AM/5mg HS
[2024-09-15 15:37] VITALS: BP 117/66
[2024-09-15] MEDS: LOVENOX 40 MG SC (17:34)
[2024-09-15] MEDS: ZYPREXA ZYDIS (ORALLY DISINTEGRATING) 5 MG PO (20:11)
--- NOTE | 2024-09-15 21:01 | PTCARENOTE ---
pt hitting side rails- kicking at staff. unable to redirect- difficult to manage behavior and keep safe . prn zyprexa given see mar
[2024-09-15 23:00] VITALS: BP 156/92
[2024-09-16] MEDS: ZYPREXA 2.5 MG PO (00:05)
--- NOTE | 2024-09-16 06:15 | PTCARENOTE ---
pt was awake most of the night- started to sleep at 0600. still combative at times and does not cooperate with care
[2024-09-16] MEDS: ASPIR LOW (ENTERIC COATED) PO ×2 (08:00→11:46)
[2024-09-16] MEDS: ZYPREXA ZYDIS (ORALLY DISINTEGRATING) PO (08:00)
[2024-09-16] MEDS: TRICOR PO (08:00)
[2024-09-16] MEDS: OSCAL 500 + D PO (08:00)
[2024-09-16 08:42] VITALS: BP 135/66
--- NOTE | 2024-09-16 10:43 | W.PN.HOSP.TC ---
Today's Communication/Plan
-
Monitor vital sign
see plan
Continue with Zyprexa per psychiatry
Monitor mental status, still with intermittent agitation
Hopeful discharge soon once agitation improves
Assessment / Plan
Assessment / Plan
General: Well Developed, Well Nourished and No Apparent Distress
HEENT: NormoCephalic, Moist mucous membranes and Atraumatic
Respiratory: Clear
Cardiac: S1/S2 and Regular Rhythm; No Murmur or Rub
GI: Soft, Non Tender, Non Distended and Normal Bowel Sounds
Musculoskeletal: No Edema
Neuro: AO x 1-2,non focal
Psych: Agitated
Dementia with behavioral disturbance
Continue with risperidone if able, Zyprexa as needed
Has received IV Haldol. Discussed with psychiatry. Patient will need mood stabilizers prior to discharge
-risperidone stopped by psych due to concern of akathisia, Zyprexa however standing and prn
-Zyprexa added prn for agitation
History of hypertension
Used to be on losartan, does have periods of hypotension as well. Will monitor
Mild vitamin D deficiency
Started vitamin D
high triglycerides
- continue fenofibrate
Code status: full code; on last admission was DNR; will need to confirm. called spouse, left voicemail
DVT prophylaxis: Lovenox sq
Eventual discharge to [facility]
Anticipated Discharge: 24 - 48 hours
Subjective/Interval History
-
Date of Service: September 16, 2024
overnight was agitated on multiple ocassions
Objective Data
-
Vital Signs:
Vital Signs
Temp Pulse Resp BP Pulse Ox
98.2 F 96 18 135/66 98
09/16/24 08:42 09/16/24 08:42 09/16/24 08:42 09/16/24 08:42 09/16/24 08:42
I&O
09/15/24 09/16/24 09/17/24
06:59 06:59 06:59
Intake Total 520 / 520 240 / 240
Balance 520 / 520 240 / 240
[2024-09-16] MEDS: OSCAL 500 + D 1000 MG PO (11:45)
[2024-09-16] MEDS: TRICOR 145 MG PO (11:46)
[2024-09-16] MEDS: ASPIR LOW (ENTERIC COATED) 81 MG PO (11:56)
[2024-09-16] MEDS: ZYPREXA ZYDIS (ORALLY DISINTEGRATING) 2.5 MG PO (12:00)
--- NOTE | 2024-09-16 12:44 | CM ---
OBS/ALVARADO form documented in chart and CM to continue to follow for discharge planning needs.
PLan; [facility] when medically appropriate
--- NOTE | 2024-09-16 13:24 | W.PN.UPDATE ---
Update Note
Progress Note Update
Pt seen at bedside, chart reviewed. Pt awake today, mumbles incoherently in response to questions but poor verbalizing and poor eye contact. Unable to meaningfully answer questions, remains confused and restless. Fumbling restlessly with various
papers, seemingly purposelessly.
Was very agitated overnight, received IM olanzapine in evening and did not sleep until 6AM - as noted appears visibly more restless today as well. Suspect that olanzapine is actually the culprit behind akathisia, quite possible that risperidone was
the more effective of the two medications he was taking as sleep significantly worsened without risperidone as well. Although there is no way to tell with 100% certainty, given the worsening of restlessness, agitation & sleep after stopping
risperidone & increasing olanzapine, I suspect that risperidone alone would be more efficacious and more tolerable for pt.
Resume risperidone - 1mg AM/ 2mg HS + 0.5mg BIDPRN acute agitation
Stop standing olanzapine - ordered 1 dose of olanzapine 2.5mg HS for tonight so as to provide brief cross taper, tomorrow to continue with risperidone only
--- NOTE | 2024-09-16 15:19 | PTCARENOTE ---
This am drowsy and initially unable to give oral am medications until 1145. He mumbles at time with poor conversation and little eye contact to staff. restless , confused and unable to answer simple questions. tries to grab for items and attempts
made to distract patient with having him try and fold wash cloths etc. Poor Po intake,dependent with all care, vss, will continue to monitor.
[2024-09-16 15:30] VITALS: BP 142/85
[2024-09-16] MEDS: RISPERDAL M-TAB (ORALLY DISINTEGRATING) 0.5 MG PO (16:17)
[2024-09-16] MEDS: LOVENOX 40 MG SC (17:42)
[2024-09-16] MEDS: ZYPREXA 2.5 MG IM (20:29)
--- NOTE | 2024-09-16 20:30 | PTCARENOTE ---
Pt uncooperative. Pt swinging and punching while being repositioned. Attempted to give Pt scheduled medications, Pt states 'get away from me you fucking pig head.' Pt swinging at this RN. Unable to reorient Pt, Pt does not answer questions
appropriately, mostly mumbles. 1:[address] Safe environment maintained.
[2024-09-16 23:00] VITALS: BP 134/85
[2024-09-17 06:56] VITALS: BP 149/77
[2024-09-17 07:15] VITALS: BP 149/77
--- NOTE | 2024-09-17 11:10 | W.PN.HOSP.TC ---
Today's Communication/Plan
-
Monitor vital signs see plan
Still with intermittent agitation; psychiatry managing
Continue with risperidone per psychiatry
Monitor mental status
Called spouse, left voicemail
Assessment / Plan
Assessment / Plan
General: Well Developed, Well Nourished and No Apparent Distress
HEENT: NormoCephalic, Moist mucous membranes
Respiratory: Clear
Cardiac: S1/S2 and Regular Rhythm; No Murmur or Rub
GI: Soft, Non Tender, Non Distended
Musculoskeletal: No Edema
Neuro: AO x 1-2,non focal
Psych: Agitated
Advance dementia with behavioral disturbance
Continue with risperidone if able, Zyprexa as needed
Has received IV Haldol on admission. Discussed with psychiatry. Patient will need mood stabilizers prior to discharge
- Risperidone now restarted by psychiatry, holding off on olanzapine
Monitor mental status
History of hypertension
Used to be on losartan, does have periods of hypotension as well. Will monitor
Mild vitamin D deficiency
Started vitamin D
high triglycerides
- continue fenofibrate
Code status: full code; on last admission was DNR; will need to confirm. called spouse, left voicemail
DVT prophylaxis: Lovenox sq
Eventual discharge to [address]
Anticipated Discharge: 24 - 48 hours
Subjective/Interval History
-
Date of Service: September 17, 2024
sleeping
Objective Data
-
Vital Signs:
Vital Signs
Temp Pulse Resp BP Pulse Ox
98.2 F 90 16 149/77 96
09/16/24 23:00 09/17/24 07:15 09/17/24 07:15 09/17/24 07:15 09/17/24 07:15
I&O
09/16/24 09/17/24 09/18/24
06:59 06:59 06:59
Intake Total 240 / 240
Output Total 550 / 550
Balance 240 / 240 -550 / -550
[2024-09-17] MEDS: OSCAL 500 + D PO (12:37)
[2024-09-17] MEDS: ASPIR LOW (ENTERIC COATED) PO (12:37)
[2024-09-17] MEDS: TRICOR PO (12:37)
[2024-09-17 15:00] VITALS: BP 119/71
--- NOTE | 2024-09-17 15:20 | W.PN.UPDATE ---
Update Note
Progress Note Update
Pt seen at bedside, chart reviewed. Pt laying quietly in bed, not answering questions meaningfully, not oriented, however has been off 1-1 today and remained calm throughout the day thus far. Has not been notably agitated since yesterday night, at
which time pt received IM olanzapine 2.5mg (around 10pm). He refused HS and AM risperidone, received prn dose of risperidone 0.5mg PO as well.
It does appear that as medication load lessens pt becomes increasingly more calm, so quite likely that akathisia was contributing to agitation. Would continue to lower standing doses, though pt only takes these intermittently.
Decreased standing risperidone to 0.5mg AM/1mg HS - continue prn risperidone 0.5mg po bidprn acute agitation/ olanzapine 2.5mg IM bidprn acute agitation
[2024-09-17] MEDS: LOVENOX 40 MG SC (17:01)
[2024-09-17] MEDS: RISPERDAL M-TAB (ORALLY DISINTEGRATING) 1 MG PO (21:37)
[2024-09-17 23:00] VITALS: BP 112/62
[2024-09-18 07:36] VITALS: BP 143/86
[2024-09-18] MEDS: OSCAL 500 + D 1000 MG PO (09:30)
[2024-09-18] MEDS: TRICOR 145 MG PO (09:30)
[2024-09-18] MEDS: ASPIR LOW (ENTERIC COATED) 81 MG PO (09:30)
[2024-09-18] MEDS: RISPERDAL M-TAB (ORALLY DISINTEGRATING) 0.5 MG PO (09:37)
--- NOTE | 2024-09-18 10:54 | W.PN.HOSP.TC ---
Today's Communication/Plan
-
Monitor vital signs see plan
If continues to remain calm then likely dc soon
cw risperidone
Assessment / Plan
Assessment / Plan
General: Well Developed, Well Nourished and No Apparent Distress
HEENT: NormoCephalic, Moist mucous membranes
Respiratory: Clear
Cardiac: S1/S2 and Regular Rhythm; No Murmur or Rub
GI: Soft, Non Tender, Non Distended
Musculoskeletal: No Edema
Neuro: AO x 1-2,non focal
Psych: Agitated
Advance dementia with behavioral disturbance
Continue with risperidone if able, Zyprexa as needed
appears symptoms could be secondary to akathisia that was contributing to his agitation
Has received IV Haldol on admission. Discussed with psychiatry. Patient will need mood stabilizers prior to discharge
- Risperidone now restarted by psychiatry, holding off on standing olanzapine
Monitor mental status
History of hypertension
Used to be on losartan, does have periods of hypotension as well. Will monitor
Mild vitamin D deficiency
Started vitamin D
high triglycerides
- continue fenofibrate
Code status: full code; on last admission was DNR; will need to confirm. called spouse, left voicemail
DVT prophylaxis: Lovenox sq
Eventual discharge to [address]
Anticipated Discharge: Within 24 hours
Subjective/Interval History
-
Date of Service: September 18, 2024
Patient appears to be calm this morning
Objective Data
-
Vital Signs:
Vital Signs
Temp Pulse Resp BP Pulse Ox
97.6 F 104 14 143/86 97
09/18/24 07:36 09/18/24 07:36 09/18/24 07:36 09/18/24 07:36 09/18/24 07:36
I&O
09/17/24 09/18/24 09/19/24
06:59 06:59 06:59
Intake Total 480 / 480
Output Total 550 / 550 650 / 650
Balance -550 / -550 -170 / -170
--- NOTE | 2024-09-18 12:28 | CM ---
Spoke Franky Gavin at [facility] [phone] & updated
off 1:1 currently
PLAN: [facility] when stable
Report #: [phone] (EMILEE Verdugo)
Fax #: [phone]
[2024-09-18 15:58] VITALS: BP 151/84
--- NOTE | 2024-09-18 16:05 | W.PN.UPDATE ---
Update Note
Progress Note Update
Pt seen this morning, lying across bed, no clothes on but partially covered with a blanket. Pt alert, calm, speech incoherent, making eye contact and trying to communicate, sensorium appears intact. No EPS evident on Risperidone, no signs of
akathisia.
Imp: Dementia, progressive, with behavior disturbance
Rec: agree with continuing Risperidone 0.5 mg daily and 1 mg HS, as well as prn, with IM Zyprexa prn for more severe agitation if po med refused.
Will follow
[2024-09-18] MEDS: LOVENOX 40 MG SC (18:21)
[2024-09-18] MEDS: RISPERDAL M-TAB (ORALLY DISINTEGRATING) 1 MG PO (21:12)
[2024-09-18 23:00] VITALS: BP 132/84
[2024-09-19 07:17] VITALS: BP 138/87
[2024-09-19] MEDS: OSCAL 500 + D 1000 MG PO (08:09)
[2024-09-19] MEDS: ASPIR LOW (ENTERIC COATED) 81 MG PO (08:10)
[2024-09-19] MEDS: RISPERDAL M-TAB (ORALLY DISINTEGRATING) 0.5 MG PO ×2 (08:10→11:47)
[2024-09-19] MEDS: TRICOR 145 MG PO (08:10)
--- NOTE | 2024-09-19 10:04 | W.PN.UPDATE ---
Update Note
Progress Note Update
Patient seen at bedside, chart reviewed, discussed with RN and Hospitalist. Mr. Blunt has been reportedly calmer with only one episode yesterday of combative behavior in where he did not want to be dressed. Once he was left alone, he became calm
again. He is sleepy this AM and I did not wake him as he would not likely be able to add any benefit to assessment related to progressive dementia. No side effects noted by staff. No 1:1 or restranints. No issues overnight. Plan to return to memory
care.
Impression/Recommendation: Dementia, progressive, with behavior disturbance - continue Risperidone 0.5 mg daily and 1 mg HS. PRN dose also available. Return to Memory Care once medically stable.
--- NOTE | 2024-09-19 11:10 | W.PN.HOSP.TC ---
Today's Communication/Plan
-
Monitor vitals
See plan
Discharge to memory care unit if able, discussed with psychiatry
cw risperidone
Assessment / Plan
Assessment / Plan
General: Well Developed, Well Nourished and No Apparent Distress
HEENT: NormoCephalic, Moist mucous membranes
Respiratory: Clear
Cardiac: S1/S2 and Regular Rhythm
GI: Soft, Non Tender, Non Distended
Musculoskeletal: No Edema
Neuro: AO x 1-2,non focal
Psych: calm
Advance dementia with behavioral disturbance
appears symptoms could be secondary to akathisia that was contributing to his agitation
Has received IV Haldol on admission. Discussed with psychiatry. Patient will need mood stabilizers prior to discharge
- Risperidone now restarted by psychiatry, holding off on standing olanzapine
Monitor mental status
Now appears more calm with risperidone. Discussed with psychiatry 09/19 and I think patient can go to memory care unit. Will discharge on risperidone standing and as needed
History of hypertension
Used to be on losartan, does have periods of hypotension as well. Will monitor
Mild vitamin D deficiency
Started vitamin D
high triglycerides
- continue fenofibrate
Code status: full code; on last admission was DNR; will need to confirm. called spouse, left voicemail
DVT prophylaxis: Lovenox sq
Eventual discharge to [address]
Anticipated Discharge: Today
Subjective/Interval History
-
Date of Service: September 19, 2024
Sleeping
Objective Data
-
Vital Signs:
Vital Signs
Temp Pulse Resp BP Pulse Ox
97.8 F 91 16 138/87 95
09/19/24 07:17 09/19/24 07:17 09/19/24 07:17 09/19/24 07:17 09/19/24 07:17
I&O
09/18/24 09/19/24 09/20/24
06:59 06:59 06:59
Intake Total 480 / 480 480 / 480
Output Total 650 / 650
Balance -170 / -170 480 / 480
--- NOTE | 2024-09-19 11:41 | W.DCSUMMARY ---
Discharge Summary
Discharge Data
Date of Admission: 09/13/24
Date of Discharge: 09/19/24
-
Pending Results: No
Hospital Course
79-year-old male with past medical history of hypertension, hypertriglyceridemia, advanced dementia came to the hospital with acute agitation due to advanced dementia with behavioral disturbances. Initially patient required IV Haldol which appeared
to have worsened his akathisia which added on to his agitation. He was seen by psychiatry throughout hospitalization. Olanzapine was also tried however that worsened his akathisia. Patient risperidone was then increased which tends to improve his
symptoms. Over time his agitation continue to improve. Once his symptoms were improving, he was then discharged to memory care unit with instructions to follow-up with all the physicians outpatient.
Discharge Plan
-
Patient Disposition: Other
Discharge Diagnosis/Procedures: Advanced dementia with behavioral disturbance
Agitation suspect secondary to Akathisia
Diet: As tolerated
Activity: As tolerated
Driving Restrictions: No driving
Referrals:
Mandeep Jones MD [Family Provider, Internal Medicine] - in less than 1 week
Jose Turner MD [Active, Psychiatry]
Prescriptions:
New
polyethylene glycol 3350 17 gram Powder In Packet
17 g PO DAILYPRN PRN (Reason: constipation) Qty: 0 0RF
risperidone 0.5 mg Tablet,Disintegrating
0.5 mg PO BIDPRN PRN (Reason: acute agitation) Qty: 1 0RF
risperidone 0.5 mg Tablet,Disintegrating
0.5 mg PO DAILY Qty: 30 0RF
risperidone 1 mg Tablet,Disintegrating
1 mg PO HS Qty: 30 0RF
Continued
aspirin 81 mg Tablet,Delayed Release (Dr/Ec)
81 mg PO DAILY
fenofibrate nanocrystallized [Tricor] 145 mg Tablet
145 mg PO DAILY Qty: 0
Discontinued
risperidone 2 mg Tablet
2 mg PO HS
Discharge Orders:
Discharge Patient (As Directed); Ordered 09/19/24
Ordered By: Ovidio Lopez
Discharge Date and Time
Discharge Date/Time: 09/19/24 14:35
Print Language: SAMI
--- NOTE | 2024-09-19 11:55 | CM ---
Addendum entered by Karolina Barrera 09/19/24 12:10:
1400 Transport set to [facility] - updated Franky Gavin
called Julia & updated
Original Note:
Patient seen at bedside
tt from hospitalist stable for discharge today to [facility]
spoke with Franky Gavin bed available today-stated he will update
OBS status- form in chart - IMM n/a
PLAN: [facility]
Report #: [id number]
fax #: [phone]
transportation forms on chart
[2024-09-19 13:58] VITALS: BP 134/92
[2024-09-19 14:31] VITALS: BMI 20.8
== END 2024-09-19 14:35 | disposition home or self-care (01) ==
LOC: 3 WEST ACU 16:23
PROVIDERS: ADMITTING PHYSICIAN Internal Medicine; CONSULT PHYSICIAN Psychiatry & Neurology Psychiatry; EMERGENCY PHYSICIAN Student in an Organized Health Care Education/Training Program; FAMILY PHYSICIAN Internal Medicine
DX: G25.71 Drug induced akathisia (principal); T43.4X5A Adverse effect of butyrophenone and thiothixene neuroleptics, initial encounter; F03.918 Unspecified dementia, unspecified severity, with other behavioral disturbance; E78.1 Pure hyperglyceridemia; I10 Essential (primary) hypertension; E55.9 Vitamin D deficiency, unspecified; E11.9 Type 2 diabetes mellitus without complications; Z79.899 Other long term (current) drug therapy
CPT/HCPCS: 80053; 81003; 81015; 82306; 82607; 82746; 84443; 85025; 87070; 93005; 96372; 99285; G0378; J2358

== ENCOUNTER 2024-09-29 15:24 | Inpatient (IN) | payer MEDICARE, SELFPAY ==
[2024-09-25 13:09] LABS: Glucose - Point of Care 266 mg/dl (70-99)
[2024-09-25 13:14] VITALS: BP 116/68; BMI 22.1
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
[2024-09-25 15:50] LABS: Hematocrit 35.3 % (39.0-52.0); Hemoglobin 11.4 g/dL (13.0-18.0); Mean Corp Hgb Conc. 32.3 g/dL (33.0-37.0); Mean Corpuscular Volume 90.3 fL (80.0-94.0); Nucleated Red Blood Cells % 0 % (-); Platelet Count 333 10^3/uL (130-400); Red Cell Dist. Width 14.3 % (11.5-14.5)
[2024-09-25 16:06] LABS: ALT (SGPT) 53 U/L (0-50); AST (SGOT) 39 U/L (17-59); Albumin 4.1 g/dl (3.5-5.0); Alkaline Phosphatase 81 U/L (38-126); Blood Urea Nitrogen 57 mg/dl (9-20); Calcium 10.4 mg/dl (8.4-10.2); Carbon Dioxide 31 mmol/L (22-30); Chloride 114 mmol/L (98-107); Estimated Creatinine Clearance 44 ml/min; Glucose 262 mg/dl (70-99); Potassium 4.1 mmol/L (3.5-5.1); Sodium 149 mmol/L (135-145); Total Protein 6.9 g/dl (6.3-8.2); eGFR 55.53
[2024-09-25 16:34] LABS: APTT 27.9 Sec (23.4-35.0); INR 1.21; PT 15.6 Sec (11.4-14.6)
[2024-09-25] MEDS: NSS 500 IV (16:47)
[2024-09-25] MEDS: ATIVAN 1 MG IV (16:54)
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
[2024-09-25 18:18] LABS: Urine Character Slightly Cloudy (Clear)
[2024-09-25 18:45] VITALS: BP 133/81
[2024-09-25 19:25] LABS: Urine Red Blood Cell >100 /HPF (0-2)
[2024-09-25 19:35] VITALS: BP 130/66; BMI 21.9
[2024-09-25] MEDS: NSS 1000 IV (21:09)
[2024-09-25] MEDS: RISPERDAL M-TAB (ORALLY DISINTEGRATING) 1 MG PO (21:10)
[2024-09-25] MEDS: TYLENOL PO (21:10)
[2024-09-25] MEDS: ATIVAN 0.5 MG PO (21:10)
[2024-09-25 21:11] LABS: Glucose - Point of Care 178 mg/dl (70-99)
[2024-09-25] MEDS: TYLENOL 650 MG PO (21:29)
[2024-09-26] MEDS: HEPARIN 5000 UNITS SC ×3 (00:56→16:25)
[2024-09-26 06:10] LABS: Hematocrit 33.2 % (39.0-52.0); Hemoglobin 10.4 g/dL (13.0-18.0); Mean Corp Hgb Conc. 31.3 g/dL (33.0-37.0); Mean Corpuscular Volume 91.0 fL (80.0-94.0); Platelet Count 286 10^3/uL (130-400); Red Cell Dist. Width 14.3 % (11.5-14.5)
[2024-09-26 06:37] LABS: Blood Urea Nitrogen 43 mg/dl (9-20); Calcium 9.5 mg/dl (8.4-10.2); Carbon Dioxide 29 mmol/L (22-30); Chloride 120 mmol/L (98-107); Estimated Creatinine Clearance 47 ml/min; Glucose 155 mg/dl (70-99); Potassium 4.2 mmol/L (3.5-5.1); Sodium 150 mmol/L (135-145); eGFR > 60.00
[2024-09-26 07:00] VITALS: BP 124/65
[2024-09-26 07:42] LABS: Glucose - Point of Care 138 mg/dl (70-99)
[2024-09-26] MEDS: NOVOLOG FLEXPEN-LOW RESISTANCE SC (08:36)
[2024-09-26] MEDS: NSS 1000 IV (08:43)
[2024-09-26] MEDS: ASPIR LOW (ENTERIC COATED) 81 MG PO (08:48)
[2024-09-26] MEDS: RISPERDAL M-TAB (ORALLY DISINTEGRATING) 0.5 MG PO (08:48)
[2024-09-26] MEDS: TRICOR 48 MG PO (08:48)
[2024-09-26 09:45] LABS: Glycohemoglobin (HgbA1c) 7.6 % (4.0-5.6)
[2024-09-26] MEDS: D5/0.45%NACL 1000 IV (10:00)
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
[2024-09-26 12:42] LABS: Glucose - Point of Care 297 mg/dl (70-99)
--- NOTE | 2024-09-26 13:29 | PTCARENOTE ---
pt calm and cooperative. Confused and pulling at IV occasionally- but redirectable with 1:1 at bedside. trial off b/l wrist restraints.
[2024-09-26 13:55] LABS: Blood Urea Nitrogen 39 mg/dl (9-20); Calcium 9.3 mg/dl (8.4-10.2); Carbon Dioxide 28 mmol/L (22-30); Chloride 118 mmol/L (98-107); Estimated Creatinine Clearance 51 ml/min; Glucose 286 mg/dl (70-99); Potassium 4.0 mmol/L (3.5-5.1); Sodium 149 mmol/L (135-145); eGFR > 60.00
[2024-09-26] MEDS: NOVOLOG FLEXPEN-LOW RESISTANCE 2 UNITS SC (14:08)
--- NOTE | 2024-09-26 14:12 | W.PN.HOSP.TC ---
Addendum entered and electronically signed by Kelin Zaragoza MD 09/26/24 16:05:
Updated patient's . She notes the aggression was controlled on the risperidone prior to her 's previous discharge from to [facility], he was there about 5 days before the aggression/combativeness started again. She is not sure if he
has been eating and drinking appropriately there.
Also noted UA has returned with positive blood and RBCs, I am unsure if this was from traumatic I&O so I will repeat UA.
Vitamin D low will start supplementation. TSH and ammonia are within normal limits
Original Note:
Today's Communication/Plan
-
Change IV fluids to D5 half NS for hypernatremia
Psychiatry consult
Continue restraint
Assessment / Plan
Assessment / Plan
1. Advanced dementia with behavioral disturbance
Patient was combative at his memory care facility and is requiring risperidone and 4 point restraints. Continue lorazepam.
Check ammonia TSH and vitamin D
Hypernatremia could be contributing
Psychiatry consulted
2. Hypernatremia
Patient not eating or drinking
Changed IV fluids to D5 half NS
Monitor sodium level
3. Left leg swelling and ecchymosis
Lt Leg x-ray: No acute findings.
Lt peripheral: US negative for DVT
4. Type 2 diabetes
diet controlled at home
Uncontrolled here in setting of IV fluid with dextrose
- AccuCheck AC & HS
- SSI
5. Hyperlipidemia
- continue fenofibrate
DVT PPx heparin subcu
Anticipated Discharge: > 48 hours
Subjective/Interval History
-
Date of Service: September 26, 2024
Patient seen and examined, he does not answer any of the questions or follow any of my commands today. Attempted to call patient's but no answer, left message to call back.
Objective Data
-
Labs:
Laboratory Results
09/26/24 09/26/24
05:42 11:56
WBC 9.4
Hgb 10.4 L
Hct 33.2 L
Plt Count 286
Sodium 150 H 149 H
Potassium 4.2 4.0
Chloride 120 H 118 H
Carbon Dioxide 29 28
BUN 43 H 39 H
Creatinine 1.2 1.1
Glucose 155 H 286 H
Calcium 9.5 9.3
Vital Signs:
Vital Signs
Temp Pulse Resp BP Pulse Ox
97.6 F 74 14 124/65 95
09/26/24 07:00 09/26/24 07:00 09/26/24 07:00 09/26/24 07:00 09/26/24 07:00
Review of Systems
-
Unable to obtain full review of systems at this time due to: Dementia
History Source: Patient
Physical Exam
-
General: Cachectic and Other (Patient is in 4 point restraints)
HEENT: PERRLA and Other (Dry mucous membranes)
Respiratory: Clear to Auscultation; Negative Wheezes, Rales or Rhonchi
Cardiac: Regular Rhythm and S1/S2
GI: Soft, Nontender, Nondistended and Normal Bowel Sounds
Musculoskeletal: No Edema
Skin: Warm and Dry
Neuro: Other (Awake but lethargic, not answering questions or following commands, intermittently moving his limbs)
Psych: Confused and Apparent Dementia
Data Reviewed
-
Labs: Labs Reviewed by me
Old Records: Reviewed
--- NOTE | 2024-09-26 14:48 | CM ---
Placed a call to patient's to obtain information for assessment. Patient was just recently discharged and transferred back to his memory care. He was sent back to ER as agitation and behaviors have returned. Patient's stated that she would
like for patient to return to [facility] however does understand that there are limitations in regard to the scope of what they can support.
Psych consult ordered.
Placed a call to [facility] to speak with staff/engineering administrator, to determine when they can accept patient back.
Plan: Case management will continue to follow and assist with discharge planning. Will wait to for indication on behalf of Psychiatry and to speak to someone at [facility]. Patient's would like for patient to return there if possible.
[2024-09-26 14:56] LABS: Ammonia < 9 umol/L (9-30)
[2024-09-26 15:00] VITALS: BP 120/63
[2024-09-26 15:17] LABS: Vitamin D, 25-OH*** 25.6 ng/mL (30-80)
--- NOTE | 2024-09-26 15:43 | W.PN.UPDATE ---
Update Note
Progress Note Update
It sounds like he was before he got to [facility] he was doing better but that was after getting him on the risperidone and prior to that is when he was aggressive and kicking and and could not be without you but only he only really lasted a few
days at [facility] it sounds like before he about 5 days yeah yeah absolutely there is definitely a waxing and waning to dementia there is going to be good days and bad days and sometimes episodes or sometimes periods of time so unfortunately yeah
that is definitely the case we do have our psychiatrist again consulted they have not finished their evaluation on him yet I think they were trust Jory get her thing together before they wrote their notes so they told me just hold off you know
wait till end of day to find out what their plan is for him if anything different he yeah it is yeah yeah exactly so its it is a same psychiatry people and so they should be able to but is now there is a couple things concerning me so I when he was
at [facility] was he eating and drinking yeah we will certainly here like us that he is not really like responding to a surgeon or doing a lot of the stuff that we ask him to do he did take the risperidone I know he took it last night for sure and
I think he did take it this morning but Patty the wake of his blood pressure readings here have been good yeah anywhere between yeah anyway would you like 116 for the top number and 132 so these are all normal numbers the thing that has not been
normal was his sodium level and his sodium level has been high and so to me it does sound like he is dehydrated also a high sodium can make people more lethargic as well so that could be explaining why he is not talking to us and not doing other
things and not really eating either so that is another reason why I am giving him the IV fluids because if he is dehydrated causing the high sodium that he needs some more fluids in his body so I am definitely right yeah it is a possibility I am not
sure exactly I think sometimes we get more information just as the time passes we get to see what the trend like so I will see what psych Shelley tree things his sodium levels have not just been monitoring them with repeat blood work and giving him the
fluids to treat it and hopefully I can get it down that way and then
[2024-09-26 16:41] LABS: Glucose - Point of Care 196 mg/dl (70-99)
[2024-09-26] MEDS: ATIVAN 0.5 MG PO (17:18)
[2024-09-26] MEDS: NOVOLOG FLEXPEN-LOW RESISTANCE 1 UNITS SC (18:08)
[2024-09-26 18:44] LABS: Blood Urea Nitrogen 37 mg/dl (9-20); Calcium 9.7 mg/dl (8.4-10.2); Carbon Dioxide 27 mmol/L (22-30); Chloride 117 mmol/L (98-107); Estimated Creatinine Clearance 56 ml/min; Glucose 225 mg/dl (70-99); Potassium 4.5 mmol/L (3.5-5.1); Sodium 146 mmol/L (135-145); eGFR > 60.00
[2024-09-26 20:25] LABS: Glucose - Point of Care 223 mg/dl (70-99)
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
[2024-09-26 23:00] VITALS: BP 119/69
[2024-09-26] MEDS: RISPERDAL M-TAB (ORALLY DISINTEGRATING) PO (23:36)
[2024-09-27] MEDS: HEPARIN 5000 UNITS SC ×2 (00:47→08:19)
[2024-09-27] MEDS: D5/0.45%NACL 500 IV (00:49)
[2024-09-27] MEDS: TYLENOL 650 MG PO ×2 (02:26→18:02)
[2024-09-27] MEDS: RISPERDAL M-TAB (ORALLY DISINTEGRATING) 0.5 MG PO ×2 (02:26→08:19)
[2024-09-27] MEDS: ATIVAN 0.5 MG PO ×2 (02:26→18:02)
[2024-09-27 05:59] LABS: Hematocrit 30.6 % (39.0-52.0); Hemoglobin 10.1 g/dL (13.0-18.0); Mean Corp Hgb Conc. 33.0 g/dL (33.0-37.0); Mean Corpuscular Volume 89.5 fL (80.0-94.0); Platelet Count 266 10^3/uL (130-400); Red Cell Dist. Width 14.1 % (11.5-14.5)
[2024-09-27 06:00] VITALS: BMI 23.1
[2024-09-27 06:15] LABS: Blood Urea Nitrogen 28 mg/dl (9-20); Calcium 9.3 mg/dl (8.4-10.2); Carbon Dioxide 26 mmol/L (22-30); Chloride 118 mmol/L (98-107); Estimated Creatinine Clearance 65 ml/min; Glucose 281 mg/dl (70-99); Potassium 3.9 mmol/L (3.5-5.1); Sodium 142 mmol/L (135-145); eGFR > 60.00
[2024-09-27 07:00] VITALS: BP 113/60
[2024-09-27 07:51] LABS: Glucose - Point of Care 258 mg/dl (70-99)
[2024-09-27] MEDS: ASPIR LOW (ENTERIC COATED) 81 MG PO (08:19)
[2024-09-27] MEDS: TRICOR 48 MG PO (08:19)
[2024-09-27] MEDS: NOVOLOG FLEXPEN-LOW RESISTANCE 3 UNITS SC ×2 (08:21→12:40)
[2024-09-27] MEDS: D5/0.45%NACL 1000 IV ×2 (08:21→21:55)
--- NOTE | 2024-09-27 09:31 | W.PN.HOSP.TC ---
Today's Communication/Plan
-
Start IV Rocephin for possible UTI
Start vitamin D
Assessment / Plan
Assessment / Plan
1. Advanced dementia with behavioral disturbance
Patient was combative at his memory care facility and is requiring risperidone and 4 point restraints. Continue lorazepam.
TSH normal, check vitamin B12
Start Rocephin for possible UTI
Psychiatry following, continue medication adjustments as per psychiatry
2. Hypernatremia
Resolved, continue IV fluids
3. Left leg swelling and ecchymosis
Lt Leg x-ray: No acute findings.
Lt peripheral: US negative for DVT
4. Type 2 diabetes
diet controlled at home
Uncontrolled here in setting of IV fluid with dextrose
- AccuCheck AC & HS
- SSI
5. Hyperlipidemia
- continue fenofibrate
6. Possible UTI
Start Rocephin day 1, follow-up on urine culture
DVT PPx SQ lovenox
DNR
Total time spent to see the patient on the floor, examine the patient, review data and lab results, discuss treatment plan with patient, nursing staff around 45 minutes.
Updated on phone 09/27
Physical Exam
General: Sedated, no acute distress
HEENT: Normocephalic, Atraumatic, MMM
Respiratory: Clear to Auscultation bilaterally
Cardiac: Normal S1/S2, Regular Rate and Rhythm
GI: Soft, Nontender, Nondistended, Normal Bowel Sounds
Extremities: No Clubbing, Cyanosis, or Edema
Left lower extremity ecchymosis and edema
Neuro: Nonfocal/Grossly Intact
Psych: Calm, Cooperative
Anticipated Discharge: 24 - 48 hours
Subjective/Interval History
-
Date of Service: September 27, 2024
Patient is somnolent from his Risperdal. He is not answering questions. No fever, no vomiting.
Objective Data
-
Labs:
Laboratory Results
09/27/24
05:35
WBC 11.4 H
Hgb 10.1 L
Hct 30.6 L
Plt Count 266
Sodium 142
Potassium 3.9
Chloride 118 H
Carbon Dioxide 26
BUN 28 H
Creatinine 0.9
Glucose 281 H
Calcium 9.3
Vital Signs:
Vital Signs
Temp Pulse Resp BP Pulse Ox
97.8 F 77 18 113/60 98
09/27/24 07:00 09/27/24 07:00 09/27/24 07:00 09/27/24 07:00 09/27/24 07:00
I&O
09/26/24 09/27/24 09/28/24
06:59 06:59 06:59
Intake Total 840 / 840
Balance 840 / 840
[2024-09-27 12:07] LABS: Glucose - Point of Care 246 mg/dl (70-99)
--- NOTE | 2024-09-27 12:13 | W.PN.UPDATE ---
Update Note
Progress Note Update
patient seen chart reviewed. discussed with nursing and with one to one caring for patient. patient was admitted for worsening agitation and irritability in the context of demential. he has several underlying medical illnesses including diabetes
anemia htn hld gerd etc. . while mr daniel was agitated last evening, at this moment in time he is sedated and difficult to keep awake long enough to eat and interact. he did not respond to attempts to engage him in any conversation. have amended
the risperdal 0.5 mg to be given at 4 pm starting tomorrow as currently he is sedated and 1 mg hs given that it sedates him in the daytime and evenings are his problem time. would not use aricept for agitation. it can sometimes cause agitation
and i don't feel it would work quickly enough in any case to help with acute agitation in the hospital setting. noted vit d low and supplement planned as per notes. tsh nl. if b12 and folate not already done would check. ua repeated culture
pending. will follow
--- NOTE | 2024-09-27 13:04 | PTCARENOTE ---
straight cath x1 attempt to obtain urine sample, pt accepted and tolerated well
[2024-09-27 13:36] LABS: Urine Character Cloudy (Clear)
[2024-09-27 14:03] LABS: Urine White Cell >100 /HPF (0-5)
[2024-09-27 14:18] VITALS: BMI 23.1
[2024-09-27 15:00] VITALS: BP 132/69
[2024-09-27] MEDS: STERILE WATER FOR INJECTION 10 ML IV (15:16)
[2024-09-27] MEDS: ROCEPHIN 1000 MG IV (15:16)
[2024-09-27] MEDS: VITAMIN D3 (cholecalciferol) 50 MCG PO (15:16)
--- NOTE | 2024-09-27 15:49 | CM ---
OBS form that was reviewed with patient's , on chart from yesterday.
[2024-09-27 16:47] LABS: Glucose - Point of Care 184 mg/dl (70-99)
[2024-09-27] MEDS: NOVOLOG FLEXPEN-LOW RESISTANCE 1 UNITS SC (17:09)
[2024-09-27] MEDS: LOVENOX 40 MG SC (17:09)
[2024-09-27] MEDS: RISPERDAL M-TAB (ORALLY DISINTEGRATING) 1 MG PO (21:15)
[2024-09-27 21:30] LABS: Glucose - Point of Care 160 mg/dl (70-99)
[2024-09-27 22:20] VITALS: BP 135/84
[2024-09-28 05:24] VITALS: BMI 23.1
[2024-09-28 06:20] LABS: Hematocrit 33.3 % (39.0-52.0); Hemoglobin 10.8 g/dL (13.0-18.0); Mean Corp Hgb Conc. 32.4 g/dL (33.0-37.0); Mean Corpuscular Volume 88.1 fL (80.0-94.0); Platelet Count 262 10^3/uL (130-400); Red Cell Dist. Width 13.8 % (11.5-14.5)
[2024-09-28 06:47] LABS: Blood Urea Nitrogen 18 mg/dl (9-20); Calcium 9.7 mg/dl (8.4-10.2); Carbon Dioxide 25 mmol/L (22-30); Chloride 114 mmol/L (98-107); Estimated Creatinine Clearance 74 ml/min; Glucose 197 mg/dl (70-99); Potassium 4.5 mmol/L (3.5-5.1); Sodium 140 mmol/L (135-145); eGFR > 60.00
[2024-09-28 07:53] LABS: Folate 11.9 ng/ml (2.76-20); Vitamin B12 711 pg/ml (239-931)
[2024-09-28 08:17] LABS: Glucose - Point of Care 199 mg/dl (70-99)
[2024-09-28 08:18] VITALS: BP 161/65
[2024-09-28] MEDS: TRICOR 48 MG PO (08:45)
[2024-09-28] MEDS: ASPIR LOW (ENTERIC COATED) 81 MG PO (08:45)
[2024-09-28] MEDS: VITAMIN D3 (cholecalciferol) 50 MCG PO (08:46)
[2024-09-28] MEDS: NOVOLOG FLEXPEN-LOW RESISTANCE 1 UNITS SC (08:46)
[2024-09-28] MEDS: RISPERDAL M-TAB (ORALLY DISINTEGRATING) 0.5 MG PO (08:46)
--- NOTE | 2024-09-28 08:48 | W.PN.HOSP.TC ---
Today's Communication/Plan
-
see bold
Assessment / Plan
Assessment / Plan
1. Advanced dementia with behavioral disturbance, possibly due to UTI as below
Patient was combative at his memory care facility and is requiring risperidone and 4 point restraints. Continue lorazepam.
TSH/vitamin B12 normal, folate also normal
Psychiatry following, continue medication adjustments as per psychiatry
2. Acute UTI
Continue Rocephin D2, urine cultures growing greater than 100,000 colonies of gram-negative rods
3. Left leg swelling and ecchymosis
Lt Leg x-ray: No acute findings.
Lt peripheral: US negative for DVT
4. Type 2 diabetes
diet controlled at home
Uncontrolled here in setting of IV fluid with dextrose
- AccuCheck AC & HS
- SSI
5. Hyperlipidemia
- continue fenofibrate
6. Hypernatremia
Resolved
DVT PPx SQ lovenox
DNR
Total time spent to see the patient on the floor, examine the patient, review data and lab results, discuss treatment plan with patient, nursing staff around 37 minutes.
Updated on phone 09/27
Physical Exam
General: Awake, no acute distress
HEENT: Normocephalic, Atraumatic, MMM
Respiratory: Clear to Auscultation bilaterally
Cardiac: Normal S1/S2, Regular Rate and Rhythm
GI: Soft, Nontender, Nondistended, Normal Bowel Sounds
Extremities: No Clubbing, Cyanosis, or Edema
Left lower extremity ecchymosis and edema
Neuro: Nonfocal/Grossly Intact
Psych: Intermittent agitation and aggression noted
Anticipated Discharge: 24 - 48 hours
Subjective/Interval History
-
Date of Service: September 28, 2024
Patient more awake today, but not eating. No fever, no vomiting.
Objective Data
-
Labs:
Laboratory Results
09/28/24
05:59
WBC 11.0 H
Hgb 10.8 L
Hct 33.3 L
Plt Count 262
Sodium 140
Potassium 4.5
Chloride 114 H
Carbon Dioxide 25
BUN 18
Creatinine 0.8
Glucose 197 H
Calcium 9.7
Vital Signs:
Vital Signs
Temp Pulse Resp BP Pulse Ox
97.6 F 76 17 161/65 95
09/28/24 08:18 09/28/24 08:18 09/28/24 08:18 09/28/24 08:18 09/27/24 22:20
I&O
09/27/24 09/28/24 09/29/24
06:59 06:59 06:59
Intake Total 840 / 840 960 / 960
Output Total 300 / 300
Balance 840 / 840 660 / 660
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
--- NOTE | 2024-09-28 11:59 | W.PN.UPDATE ---
Update Note
Progress Note Update
patient seen chart reviewed. mr daniel is quiet this morning. i spoke with nursing. he did have a prn of ativan around dinnertime last night but to her knowledge he has been doing reasonably vis a vis agitation since. we discussed if there are
issues this evening changing the risperdal to evenings a dose at 4 and one at hs as i suggested yesterday or adding an extra dose of risperdal for now will continue as ordered.
[2024-09-28 12:06] LABS: Glucose - Point of Care 215 mg/dl (70-99)
[2024-09-28] MEDS: NOVOLOG FLEXPEN-LOW RESISTANCE 2 UNITS SC ×2 (13:42→17:20)
[2024-09-28] MEDS: ROCEPHIN 1000 MG IV (14:13)
[2024-09-28] MEDS: STERILE WATER FOR INJECTION 10 ML IV (14:13)
[2024-09-28] MEDS: D5/0.45%NACL 1000 IV (14:13)
[2024-09-28 14:57] VITALS: BP 131/47
[2024-09-28 16:29] LABS: Glucose - Point of Care 214 mg/dl (70-99)
[2024-09-28] MEDS: LOVENOX 40 MG SC (17:17)
[2024-09-28] MEDS: TYLENOL 650 MG PO (17:21)
[2024-09-28] MEDS: RISPERDAL M-TAB (ORALLY DISINTEGRATING) 1 MG PO (19:44)
[2024-09-28 20:39] LABS: Glucose - Point of Care 175 mg/dl (70-99)
[2024-09-28 23:00] VITALS: BP 128/78
[2024-09-28] MEDS: MELATONIN 3 MG PO (23:41)
[2024-09-29] MEDS: D5/0.45%NACL 1000 IV (03:35)
[2024-09-29 05:58] VITALS: BMI 23.0
[2024-09-29 07:25] LABS: Blood Urea Nitrogen 13 mg/dl (9-20); Calcium 9.2 mg/dl (8.4-10.2); Carbon Dioxide 24 mmol/L (22-30); Chloride 109 mmol/L (98-107); Estimated Creatinine Clearance 73 ml/min; Glucose 182 mg/dl (70-99); Potassium 3.8 mmol/L (3.5-5.1); Sodium 134 mmol/L (135-145); eGFR > 60.00
[2024-09-29 07:30] LABS: Hematocrit 31.8 % (39.0-52.0); Hemoglobin 10.6 g/dL (13.0-18.0); Mean Corp Hgb Conc. 33.3 g/dL (33.0-37.0); Mean Corpuscular Volume 85.7 fL (80.0-94.0); Platelet Count 267 10^3/uL (130-400); Red Cell Dist. Width 13.6 % (11.5-14.5)
[2024-09-29 08:03] LABS: Glucose - Point of Care 188 mg/dl (70-99)
[2024-09-29] MEDS: LOW STRENGTH ASPIRIN PO ×2 (08:07→10:30)
[2024-09-29] MEDS: TRICOR PO ×2 (08:07→10:30)
[2024-09-29] MEDS: TYLENOL PO (08:07)
[2024-09-29] MEDS: VITAMIN D3 (cholecalciferol) PO ×2 (08:07→10:29)
[2024-09-29] MEDS: RISPERDAL M-TAB (ORALLY DISINTEGRATING) PO ×2 (08:07→10:30)
[2024-09-29] MEDS: NOVOLOG FLEXPEN-LOW RESISTANCE 1 UNITS SC ×2 (08:09→18:20)
--- NOTE | 2024-09-29 09:22 | W.PN.HOSP.TC ---
Today's Communication/Plan
-
see bold
Assessment / Plan
Assessment / Plan
1. Advanced dementia with behavioral disturbance, possibly due to UTI as below
Patient was combative at his memory care facility and is requiring risperidone and 4 point restraints. Continue lorazepam.
TSH/vitamin B12 normal, folate also normal
Psychiatry following, continue medication adjustments as per psychiatry
From [facility]
2. Acute UTI
Continue Rocephin D3, urine cultures growing Klebsiella, sensitive to Rocephin
3. Left leg swelling and ecchymosis
Lt Leg x-ray: No acute findings.
Lt peripheral: US negative for DVT
4. Type 2 diabetes
diet controlled at home
Uncontrolled here in setting of IV fluid with dextrose
- AccuCheck AC & HS
- SSI
5. Hyperlipidemia
- continue fenofibrate
6. Hypernatremia
Resolved
7. Hyponatremia
Monitor
DVT PPx SQ lovenox
DNR
Total time spent to see the patient on the floor, examine the patient, review data and lab results, discuss treatment plan with patient, nursing staff around 39 minutes.
Updated on phone 09/29
Physical Exam
General: Awake, no acute distress
HEENT: Normocephalic, Atraumatic, MMM
Respiratory: Clear to Auscultation bilaterally
Cardiac: Normal S1/S2, Regular Rate and Rhythm
GI: Soft, Nontender, Nondistended, Normal Bowel Sounds
Extremities: No Clubbing, Cyanosis, or Edema
Left lower extremity ecchymosis and edema
Neuro: Nonfocal/Grossly Intact
Psych: Intermittent agitation and aggression noted
Anticipated Discharge: 24 - 48 hours
Subjective/Interval History
-
Date of Service: September 29, 2024
Patient continues to be agitated, spit out his pills this morning. He eats about 50% of his meals. No fever, no vomiting.
Objective Data
-
Labs:
Laboratory Results
09/29/24
06:40
WBC 8.9
Hgb 10.6 L
Hct 31.8 L
Plt Count 267
Sodium 134 L
Potassium 3.8
Chloride 109 H
Carbon Dioxide 24
BUN 13
Creatinine 0.8
Glucose 182 H
Calcium 9.2
Vital Signs:
Vital Signs
Temp Pulse Resp BP Pulse Ox
97.5 F 78 18 128/78 96
09/28/24 23:00 09/28/24 23:00 09/28/24 23:00 09/28/24 23:00 09/28/24 23:00
I&O
09/28/24 09/29/24 09/30/24
06:59 06:59 06:59
Intake Total 960 / 960 1800 / 1800
Output Total 300 / 300 1650 / 1650
Balance 660 / 660 150 / 150
--- NOTE | 2024-09-29 11:48 | W.PN.UPDATE ---
Update Note
Progress Note Update
patient seen chart reviewed. spoke to nursing and to the aide who is patient's one to one. patient has continued w periods of great agitation this am spitting food and his medications out. staff reports it has been very difficult if not impossble
to get po meds in to him. reviewed ecg which are have normal qtc (in fact the ecg's are read as normal). will order o.5 mg haldol iv instead of risperdal which he has been unable to take consistently will monitor.
--- NOTE | 2024-09-29 12:00 | CM ---
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
Pt current with 1:1 for agitation and refusing po medicine.
Psychiatry involved.
PLAN Discharge planning ongoing
[2024-09-29 12:17] LABS: Glucose - Point of Care 257 mg/dl (70-99)
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
[2024-09-29] MEDS: ROCEPHIN 1000 MG IV (14:19)
[2024-09-29] MEDS: STERILE WATER FOR INJECTION 10 ML IV (14:19)
[2024-09-29] MEDS: NOVOLOG FLEXPEN-LOW RESISTANCE 3 UNITS SC (14:20)
[2024-09-29] MEDS: HALDOL 1 MG IV (15:16)
[2024-09-29 16:25] LABS: Glucose - Point of Care 176 mg/dl (70-99)
[2024-09-29 16:39] VITALS: BP 142/79
[2024-09-29] MEDS: LOVENOX 40 MG SC (18:20)
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
[2024-09-29] MEDS: ATIVAN 1 MG IV (20:22)
[2024-09-29] MEDS: NSS (PRESERVATIVE FREE) 0.5 ML IV (20:22)
[2024-09-29 21:36] LABS: Glucose - Point of Care 208 mg/dl (70-99)
[2024-09-29 23:00] VITALS: BP 134/91
[2024-09-30 05:53] VITALS: BMI 22.2
[2024-09-30 08:00] VITALS: BP 132/73
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
[2024-09-30] MEDS: TYLENOL 650 MG PO (08:51)
[2024-09-30] MEDS: ATIVAN PO (08:51)
[2024-09-30] MEDS: VITAMIN D3 (cholecalciferol) 50 MCG PO (08:51)
[2024-09-30] MEDS: TRICOR 48 MG PO (08:53)
[2024-09-30] MEDS: LOW STRENGTH ASPIRIN 81 MG PO (08:53)
[2024-09-30 08:56] LABS: Glucose - Point of Care 180 mg/dl (70-99)
[2024-09-30] MEDS: NOVOLOG FLEXPEN-LOW RESISTANCE 1 UNITS SC (08:56)
[2024-09-30] MEDS: ATIVAN 0.5 MG PO (10:53)
[2024-09-30 12:23] LABS: Glucose - Point of Care 228 mg/dl (70-99)
[2024-09-30] MEDS: NSS 1000 IV (13:37)
[2024-09-30] MEDS: NOVOLOG FLEXPEN-LOW RESISTANCE 2 UNITS SC ×2 (13:38→17:53)
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
[2024-09-30] MEDS: ROCEPHIN 1000 MG IV (14:42)
[2024-09-30] MEDS: STERILE WATER FOR INJECTION 10 ML IV (14:43)
[2024-09-30 15:51] VITALS: BP 129/68
[2024-09-30 17:52] LABS: Glucose - Point of Care 209 mg/dl (70-99)
[2024-09-30] MEDS: HALDOL 1 MG IV (17:56)
[2024-09-30] MEDS: LOVENOX 40 MG SC (18:00)
[2024-09-30 21:09] LABS: Glucose - Point of Care 140 mg/dl (70-99)
[2024-09-30 23:08] VITALS: BP 148/93
[2024-10-01] MEDS: NSS 1000 IV ×2 (02:13→15:31)
[2024-10-01 06:00] VITALS: BMI 22.4
[2024-10-01 07:22] VITALS: BP 119/68
[2024-10-01 07:28] LABS: Hematocrit 31.4 % (39.0-52.0); Hemoglobin 10.9 g/dL (13.0-18.0); Mean Corp Hgb Conc. 34.7 g/dL (33.0-37.0); Mean Corpuscular Volume 84.0 fL (80.0-94.0); Platelet Count 293 10^3/uL (130-400); Red Cell Dist. Width 13.7 % (11.5-14.5)
[2024-10-01 07:39] LABS: Glucose - Point of Care 145 mg/dl (70-99)
[2024-10-01 08:03] LABS: Blood Urea Nitrogen 13 mg/dl (9-20); Calcium 9.0 mg/dl (8.4-10.2); Carbon Dioxide 20 mmol/L (22-30); Chloride 108 mmol/L (98-107); Estimated Creatinine Clearance 72 ml/min; Glucose 126 mg/dl (70-99); Potassium 3.9 mmol/L (3.5-5.1); Sodium 133 mmol/L (135-145); eGFR > 60.00
[2024-10-01] MEDS: TRICOR 48 MG PO (08:32)
[2024-10-01] MEDS: NOVOLOG FLEXPEN-LOW RESISTANCE SC (08:32)
[2024-10-01] MEDS: LOW STRENGTH ASPIRIN 81 MG PO (08:33)
[2024-10-01] MEDS: VITAMIN D3 (cholecalciferol) 50 MCG PO (08:33)
--- NOTE | 2024-10-01 09:11 | W.PN.HOSP.TC ---
Today's Communication/Plan
-
see bold
Assessment / Plan
Assessment / Plan
1. Advanced dementia with behavioral disturbance, possibly due to UTI as below
Patient was combative at his memory care facility and is requiring risperidone and 4 point restraints. Continue lorazepam.
TSH/vitamin B12 normal, folate also normal
Psychiatry following, continue medication adjustments as per psychiatry
From [facility]
2. Acute UTI
Continue Rocephin D5/7, urine cultures growing Klebsiella, sensitive to Rocephin
3. Left leg swelling and ecchymosis
Lt Leg x-ray: No acute findings.
Lt peripheral: US negative for DVT
4. Type 2 diabetes
Hemoglobin A1c 7.6
diet controlled at home
Continue sliding scale insulin
5. Hyperlipidemia
- continue fenofibrate
6. Hypernatremia
Resolved
7. Hyponatremia
Monitor
DVT PPx SQ lovenox
DNR
Total time spent to see the patient on the floor, examine the patient, review data and lab results, discuss treatment plan with patient, nursing staff around 37 minutes.
Updated on phone 09/29
Physical Exam
General: Awake, no acute distress
HEENT: Normocephalic, Atraumatic, MMM
Respiratory: Clear to Auscultation bilaterally
Cardiac: Normal S1/S2, Regular Rate and Rhythm
GI: Soft, Nontender, Nondistended, Normal Bowel Sounds
Extremities: No Clubbing, Cyanosis, or Edema
Left lower extremity ecchymosis and edema
Neuro: Nonfocal/Grossly Intact
Psych: Intermittent agitation and aggression noted
Anticipated Discharge: 24 - 48 hours
Subjective/Interval History
-
Date of Service: October 01, 2024
Patient is more calm today. He took his medications, and is eating. No fever, no vomiting.
Objective Data
-
Labs:
Laboratory Results
10/01/24
06:16
WBC 9.3
Hgb 10.9 L
Hct 31.4 L
Plt Count 293
Sodium 133 L
Potassium 3.9
Chloride 108 H
Carbon Dioxide 20 L
BUN 13
Creatinine 0.8
Glucose 126 H
Calcium 9.0
Vital Signs:
Vital Signs
Temp Pulse Resp BP Pulse Ox
98.0 F 85 17 119/68 97
10/01/24 07:22 10/01/24 07:22 10/01/24 07:22 10/01/24 07:22 10/01/24 07:22
I&O
09/30/24 10/01/24 10/02/24
06:59 06:59 06:59
Intake Total 240 / 240 1000 / 1000
Output Total 1100 / 1100 1500 / 1500
Balance -860 / -860 -500 / -500
[2024-10-01 11:43] LABS: Glucose - Point of Care 159 mg/dl (70-99)
[2024-10-01] MEDS: NOVOLOG FLEXPEN-LOW RESISTANCE 1 UNITS SC ×2 (12:49→17:24)
--- NOTE | 2024-10-01 14:11 | W.PN.UPDATE ---
Update Note
Progress Note Update
Seen in room. Spoke to 1:1 tech and nurse. He ate a good lunch; eating and drinking okay takng PO medication.
He is very confused today (baseline). Not agitated.
Will change standing order of 1 mg. IV haloperidol to 2 mg. PO at 1600. Still has PRN lorazepam.
Psychiatry will follow.
[2024-10-01 15:31] VITALS: BP 96/48
[2024-10-01] MEDS: MIRALAX 17 GRAMS PO (15:35)
[2024-10-01] MEDS: ATIVAN 0.5 MG PO (15:35)
[2024-10-01] MEDS: STERILE WATER FOR INJECTION 10 ML IV (15:35)
[2024-10-01] MEDS: ROCEPHIN 1000 MG IV (15:35)
[2024-10-01 16:46] LABS: Glucose - Point of Care 162 mg/dl (70-99)
[2024-10-01] MEDS: HALDOL 2 MG PO (18:03)
[2024-10-01] MEDS: LOVENOX 40 MG SC (18:04)
[2024-10-01 21:21] LABS: Glucose - Point of Care 138 mg/dl (70-99)
[2024-10-01 23:30] VITALS: BP 131/72
[2024-10-02] MEDS: NSS 1000 IV (04:55)
[2024-10-02 06:50] VITALS: BP 125/75
[2024-10-02 07:37] LABS: Glucose - Point of Care 122 mg/dl (70-99)
--- NOTE | 2024-10-02 09:06 | W.PN.HOSP.TC ---
Addendum entered and electronically signed by Radha Sawyer MD 10/02/24 12:50:
patient intermittently refuses PO so will place back on IV antibiotics
Original Note:
Today's Communication/Plan
-
follow up further Psychiatry recommendations
Assessment / Plan
Assessment / Plan
Patient is a 79-year-old male with past medical history significant for type 2 diabetes, hypertension, hypercalcemia, hyperlipidemia, dementia, hearing loss and GERD who presented to [facility] ED for evaluation of aggressive behaviors.
1. Advanced dementia with behavioral disturbance, possibly due to UTI as below
Patient was combative at his memory care facility and is requiring risperidone and 4 point restraints. Continue lorazepam.
TSH/vitamin B12 normal, folate also normal
Psychiatry following, continue medication adjustments as per psychiatry
From [facility]
2. Acute UTI
- urine cultures growing Klebsiella, sensitive to Rocephin
-change to oral abx (Ceftriaxone --> Cefdinir) --> day 08/19
3. Left leg swelling and ecchymosis
Lt Leg x-ray: No acute findings.
Lt peripheral: US negative for DVT
4. Type 2 diabetes
Hemoglobin A1c 7.6
diet controlled at home
Continue sliding scale insulin
5. Hyperlipidemia
- continue fenofibrate
6. Hypernatremia
Resolved
7. Hyponatremia
Monitor
DVT PPx SQ lovenox
DNR
Total time spent to see the patient on the floor, examine the patient, review data and lab results, discuss treatment plan with patient, nursing staff around 37 minutes.
Updated on phone 09/29
Physical Exam
General: Awake, no acute distress
HEENT: Normocephalic, Atraumatic, MMM
Respiratory: Clear to Auscultation bilaterally
Cardiac: Normal S1/S2, Regular Rate and Rhythm
GI: Soft, Nontender, Nondistended, Normal Bowel Sounds
Extremities: No Clubbing, Cyanosis, or Edema
Left lower extremity ecchymosis and edema
Neuro: Nonfocal/Grossly Intact
Psych: Intermittent agitation and aggression noted
Anticipated Discharge: 24 - 48 hours
Subjective/Interval History
-
Date of Service: October 02, 2024
He is resting comfortably but can get aggressive when awake
Objective Data
-
Vital Signs:
Vital Signs
Temp Pulse Resp BP Pulse Ox
97.7 F 72 16 125/75 95
10/02/24 06:50 10/02/24 06:50 10/02/24 06:50 10/02/24 06:50 10/02/24 06:50
I&O
10/01/24 10/02/24 10/03/24
06:59 06:59 06:59
Intake Total 1000 / 1000 420 / 420
Output Total 1500 / 1500 2350 / 2350
Balance -500 / -500 -1930 / -1930
Review of Systems
-
Unable to obtain full review of systems at this time due to: Dementia
History Source: Patient
Physical Exam
-
General: Cachectic and Other (Patient is in 4 point restraints)
HEENT: PERRLA and Other (Dry mucous membranes)
Respiratory: Clear to Auscultation; Negative Wheezes, Rales or Rhonchi
Cardiac: Regular Rhythm and S1/S2
GI: Soft, Nontender, Nondistended and Normal Bowel Sounds
Musculoskeletal: No Edema
Skin: Warm and Dry
Psych: Confused and Apparent Dementia
Data Reviewed
-
Diagnostic Radiology: Report Reviewed by me
Labs: Labs Reviewed by me
[2024-10-02] MEDS: NOVOLOG FLEXPEN-LOW RESISTANCE SC ×3 (09:27→16:53)
[2024-10-02] MEDS: VITAMIN D3 (cholecalciferol) 50 MCG PO (09:30)
[2024-10-02] MEDS: LOW STRENGTH ASPIRIN 81 MG PO (09:30)
[2024-10-02] MEDS: OMNICEF 300 MG PO (09:30)
[2024-10-02] MEDS: TYLENOL 650 MG PO (09:30)
[2024-10-02] MEDS: TRICOR 48 MG PO (09:30)
[2024-10-02] MEDS: MIRALAX 17 GRAMS PO (09:31)
[2024-10-02 11:44] LABS: Glucose - Point of Care 123 mg/dl (70-99)
--- NOTE | 2024-10-02 14:00 | PTCARENOTE ---
Resaitraints removed, pt ambulated to bathroom with assist x2. Confused. Able to follow direction
--- NOTE | 2024-10-02 14:00 | PTCARENOTE ---
Restraints removed, pt ambulated to bathroom with assist x2. Confused, following direction.
--- NOTE | 2024-10-02 14:37 | CM ---
Patient seen at bedside
Patient is 1:1, on restraints currently
spoke with Franky Gavin [phone] at [employer] & updated
PLAN: TBD, ?[facility] to [facility] to follow
[2024-10-02 14:47] VITALS: BP 119/69
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
[2024-10-02] MEDS: HALDOL 2 MG PO (16:32)
[2024-10-02 16:43] LABS: Glucose - Point of Care 137 mg/dl (70-99)
[2024-10-02] MEDS: LOVENOX 40 MG SC (18:03)
[2024-10-02] MEDS: ROCEPHIN 1000 MG IV (20:27)
[2024-10-02] MEDS: STERILE WATER FOR INJECTION 10 ML IV (20:28)
[2024-10-02 21:12] LABS: Glucose - Point of Care 151 mg/dl (70-99)
[2024-10-02 22:19] VITALS: BP 123/74
--- NOTE | 2024-10-03 02:22 | DOWNTIME ---
There was a [employer] Client Calender Machine Operator Downtime on 10/03/2024 from 0100 to 10/03/2024 at 0220. Downtime documentation of patient's care, including medication administrations, has been reconciled in the electronic record per guidelines. Refer to the
patient's paper chart under the miscellaneous tab to see printed paper medication records and downtime forms.
[2024-10-03 07:48] LABS: Blood Urea Nitrogen 11 mg/dl (9-20); Calcium 9.4 mg/dl (8.4-10.2); Carbon Dioxide 25 mmol/L (22-30); Chloride 105 mmol/L (98-107); Estimated Creatinine Clearance 72 ml/min; Glucose 127 mg/dl (70-99); Potassium 4.2 mmol/L (3.5-5.1); Sodium 133 mmol/L (135-145); eGFR > 60.00
[2024-10-03 08:10] LABS: Glucose - Point of Care 125 mg/dl (70-99)
[2024-10-03] MEDS: NOVOLOG FLEXPEN-LOW RESISTANCE SC ×3 (08:14→17:26)
[2024-10-03] MEDS: LOW STRENGTH ASPIRIN 81 MG PO ×2 (09:09→09:10)
[2024-10-03] MEDS: TRICOR 48 MG PO (09:10)
[2024-10-03] MEDS: VITAMIN D3 (cholecalciferol) 50 MCG PO (09:10)
[2024-10-03] MEDS: MIRALAX 17 GRAMS PO (09:10)
--- NOTE | 2024-10-03 10:20 | W.PN.HOSP.TC ---
Today's Communication/Plan
-
psych medication adjustments per Psychiatry
Assessment / Plan
Assessment / Plan
Patient is a 79-year-old male with past medical history significant for type 2 diabetes, hypertension, hypercalcemia, hyperlipidemia, dementia, hearing loss and GERD who presented to [facility] ED for evaluation of aggressive behaviors.
1. Advanced dementia with behavioral disturbance
Patient was combative at his memory care facility and is requiring med adjustments
Treating UTI (below) if possible contributor
TSH/vitamin B12 normal, folate also normal
Psychiatry following, continue medication adjustments as per psychiatry - continue daily Haldol and PRN Lorazepam per Psychiatry
From [facility]
2. Acute UTI
- urine cultures growing Klebsiella, sensitive to Rocephin
-one last dose of IV Ceftriaxone this evening
3. Left leg swelling and ecchymosis
Lt Leg x-ray: No acute findings.
Lt peripheral: US negative for DVT
4. Type 2 diabetes
Hemoglobin A1c 7.6
diet controlled at home
Continue sliding scale insulin
5. Hyperlipidemia
- continue fenofibrate
6. Hypernatremia
Resolved
7. Hyponatremia
Monitor
DVT PPx SQ lovenox
DNR
Total time spent to see the patient on the floor, examine the patient, review data and lab results, discuss treatment plan with patient, nursing staff around 37 minutes.
Anticipated Discharge: 24 - 48 hours
Subjective/Interval History
-
Date of Service: October 03, 2024
awake, alert
calm this morning
Objective Data
-
Labs:
Laboratory Results
10/03/24
07:06
Sodium 133 L
Potassium 4.2
Chloride 105
Carbon Dioxide 25
BUN 11
Creatinine 0.8
Glucose 127 H
Calcium 9.4
Vital Signs:
Vital Signs
Temp Pulse Resp BP Pulse Ox
98.1 F 76 18 123/74 96
10/02/24 22:19 10/02/24 22:19 10/02/24 22:19 10/02/24 22:19 10/02/24 22:19
I&O
10/02/24 10/03/24 10/04/24
06:59 06:59 06:59
Intake Total 420 / 420 960 / 960
Output Total 2350 / 2350 2600 / 2600
Balance -1930 / -1930 -1640 / -1640
Review of Systems
-
Unable to obtain full review of systems at this time due to: Dementia
History Source: Patient
Physical Exam
-
General: No Apparent Distress and Other (Patient is in 2 point restraints)
HEENT: PERRLA and Other (Dry mucous membranes)
Respiratory: Clear to Auscultation; Negative Wheezes, Rales or Rhonchi
Cardiac: Regular Rhythm and S1/S2
GI: Soft, Nontender, Nondistended and Normal Bowel Sounds
Musculoskeletal: No Edema
Skin: Warm and Dry
Psych: Confused and Apparent Dementia
Data Reviewed
-
Diagnostic Radiology: Report Reviewed by me
Labs: Labs Reviewed by me
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
[2024-10-03 12:22] LABS: Glucose - Point of Care 137 mg/dl (70-99)
--- NOTE | 2024-10-03 12:29 | CM ---
Patient seen at bedside
[facility]
cont 1:1, soft wrist restraints
psychiatry seeing patient, starl po 1600
PLAN: tbd, ?[facility] CM to continue to follow
[2024-10-03 15:46] VITALS: BP 132/80
[2024-10-03] MEDS: HALDOL 2 MG PO (15:52)
[2024-10-03] MEDS: LOVENOX 40 MG SC (17:19)
[2024-10-03 17:26] LABS: Glucose - Point of Care 116 mg/dl (70-99)
[2024-10-03 21:35] LABS: Glucose - Point of Care 123 mg/dl (70-99)
[2024-10-03] MEDS: ROCEPHIN 1000 MG IV (22:15)
[2024-10-03] MEDS: STERILE WATER FOR INJECTION 10 ML IV (22:16)
[2024-10-03 22:21] VITALS: BP 121/57
[2024-10-04 06:59] VITALS: BP 131/61
[2024-10-04 08:14] LABS: Glucose - Point of Care 114 mg/dl (70-99)
[2024-10-04] MEDS: NOVOLOG FLEXPEN-LOW RESISTANCE SC (09:29)
[2024-10-04] MEDS: MIRALAX 17 GRAMS PO (09:33)
[2024-10-04] MEDS: VITAMIN D3 (cholecalciferol) 50 MCG PO (09:33)
[2024-10-04] MEDS: TRICOR 48 MG PO (09:33)
--- NOTE | 2024-10-04 09:38 | W.PN.HOSP.TC ---
Today's Communication/Plan
-
discharge per psych
Consider more anti-psychotic to avoid restraints
Assessment / Plan
Assessment / Plan
Physical Exam
General: No Apparent Distress and Other (Patient is in 2 point restraints)
HEENT: PERRLA and Other (Dry mucous membranes)
Respiratory: Clear to Auscultation; Negative Wheezes, Rales or Rhonchi
Cardiac: Regular Rhythm and S1/S2
GI: Soft, Nontender, Nondistended and Normal Bowel Sounds
Musculoskeletal: No Edema
Skin: Warm and Dry
Neuro: awake but did not follow commands, seems lethargic
Psych: Confused and Apparent Dementia
Patient is a 79-year-old male with past medical history significant for type 2 diabetes, hypertension, hypercalcemia, hyperlipidemia, dementia, hearing loss and GERD who presented to [facility] ED for evaluation of aggressive behaviors.
1. Advanced dementia with behavioral disturbance
Patient was combative at his memory care facility and is requiring med adjustments
Treating UTI (below) if possible contributor
TSH/vitamin B12 normal, folate also normal
Psychiatry following, continue medication adjustments as per psychiatry - continue daily Haldol and PRN Lorazepam per Psychiatry
[place] [facility] [place]. Acute UTI
- urine cultures growing Klebsiella, sensitive to Rocephin
-one last dose of IV Ceftriaxone 10/03, finished 7 days of IV Abx.
3. Left leg swelling and ecchymosis
Lt Leg x-ray: No acute findings.
Lt peripheral: US negative for DVT
4. Type 2 diabetes
Hemoglobin A1c 7.6
diet controlled at home
Continue sliding scale insulin
5. Hyperlipidemia
- continue fenofibrate
6. Hypernatremia
Resolved
7. Hyponatremia
Monitor
DVT PPx SQ lovenox
DNR
Total time spent to see the patient on the floor, examine the patient, review data and lab results, discuss treatment plan with patient, psychiatrist, nursing staff around 55 minutes.
Anticipated Discharge: 24 - 48 hours
Subjective/Interval History
-
Date of Service: October 04, 2024
On soft restraints
Did not sleep at night per staff
Objective Data
-
Vital Signs:
Vital Signs
Temp Pulse Resp BP Pulse Ox
97.6 F 83 16 131/61 99
10/04/24 06:59 10/04/24 06:59 10/04/24 06:59 10/04/24 06:59 10/04/24 06:59
I&O
10/03/24 10/04/24 10/05/24
06:59 06:59 06:59
Intake Total 960 / 960
Output Total 2600 / 2600 450 / 450
Balance -1640 / -1640 -450 / -450
--- NOTE | 2024-10-04 11:40 | W.PN.UPDATE ---
Update Note
Progress Note Update
patient seen chart reviewed. discussed with nursing. the patient was initially sleeping but was arousable. however even with both eyes open he was largely unresponsive. aide reported he did eat some breakfast. after speakling to nursing a decision
made to release restraints. noted significant cogwheeling in both wrists almost to the degree of clonus. will decrease haldol to one mg and try symmetrel 50 mg bid for the rigidity. will continue to follow. patient has had multiple episodes of
aggression which seem to be lessened with haldol so far.
[2024-10-04 12:38] LABS: Glucose - Point of Care 164 mg/dl (70-99)
[2024-10-04] MEDS: NOVOLOG FLEXPEN-LOW RESISTANCE 1 UNITS SC (12:50)
--- NOTE | 2024-10-04 13:34 | CM ---
Patient chart reviewed, cont 1:1 - off restraints currently
psychiatry following
medication adjustment
Spoke with Franky Gavin at [facility] & updated
[facility]
will [facility], but has to be off 1:1/behaviors 48hr
PLAN: [facility] when stable
[2024-10-04] MEDS: HALDOL 1 MG PO (15:05)
[2024-10-04] MEDS: SYMMETREL SYRUP 50 MG PO ×2 (15:06→20:01)
[2024-10-04 15:13] VITALS: BP 136/66
[2024-10-04 17:22] LABS: Glucose - Point of Care 207 mg/dl (70-99)
[2024-10-04] MEDS: NOVOLOG FLEXPEN-LOW RESISTANCE 2 UNITS SC (17:48)
[2024-10-04] MEDS: LOVENOX 40 MG SC (17:49)
[2024-10-04] MEDS: ATIVAN 0.5 MG PO (20:01)
[2024-10-04 20:33] LABS: Glucose - Point of Care 133 mg/dl (70-99)
--- NOTE | 2024-10-04 21:31 | PTCARENOTE ---
COMBATIVE- HITTING/SCRATCHING STAFF. ATIVAN GIVEN. PT REQUIRING RESTRAINTS
[2024-10-04 23:00] VITALS: BP 112/68
[2024-10-05 07:00] VITALS: BP 141/64
[2024-10-05 08:00] LABS: Glucose - Point of Care 130 mg/dl (70-99)
[2024-10-05] MEDS: NOVOLOG FLEXPEN-LOW RESISTANCE SC ×3 (08:10→17:18)
--- NOTE | 2024-10-05 08:25 | W.PN.HOSP.TC ---
Today's Communication/Plan
-
No improvement
Back on restraints due to continued combativeness
Advanced dementia
Consider Comfort care measures/ hopsice.
Assessment / Plan
Assessment / Plan
Physical Exam
General: No Apparent respiratory Distress and Other (Patient is in 2 point restraints)
HEENT: PERRLA and Other (Dry mucous membranes)
Respiratory: Clear to Auscultation; Negative Wheezes, Rales or Rhonchi
Cardiac: Regular Rhythm and S1/S2
GI: Soft, Nontender, Nondistended and Normal Bowel Sounds
Musculoskeletal: No Edema
Skin: Warm and Dry
Neuro: awake but did not follow commands, non verbal, does not follow commands.
Psych: restraints
Patient is a 79-year-old male with past medical history significant for type 2 diabetes, hypertension, hypercalcemia, hyperlipidemia, dementia, hearing loss and GERD who presented to [facility] ED for evaluation of aggressive behaviors.
1. Advanced dementia with behavioral disturbance
Patient was combative at his memory care facility and is requiring med adjustments
Treated UTI but no improvement in mentation.
TSH/vitamin B12 normal, folate also normal
Psychiatry following, continue medication adjustments as per psychiatry - continue daily Haldol and PRN Lorazepam per Psychiatry
From [facility] [place]
2. Acute UTI
- urine cultures growing Klebsiella, sensitive to Rocephin
-one last dose of IV Ceftriaxone 10/03, finished 7 days of IV Abx.
3. Left leg swelling and ecchymosis
Lt Leg x-ray: No acute findings.
Lt peripheral: US negative for DVT
4. Type 2 diabetes
Hemoglobin A1c 7.6
diet controlled at home
Continue sliding scale insulin
5. Hyperlipidemia
- continue fenofibrate
6. Hypernatremia
Resolved
7. Hyponatremia
Monitor
DVT PPx SQ lovenox
DNR
Total time spent to see the patient on the floor, examine the patient, review data and lab results, discuss treatment plan with patient, psychiatrist, nursing staff around 55 minutes.
Anticipated Discharge: 24 - 48 hours
Subjective/Interval History
-
Date of Service: October 05, 2024
Objective Data
-
Vital Signs:
Vital Signs
Temp Pulse Resp BP Pulse Ox
97.8 F 69 17 141/64 95
10/05/24 07:00 10/05/24 07:00 10/05/24 07:00 10/05/24 07:00 10/05/24 07:00
I&O
10/04/24 10/05/24 10/06/24
06:59 06:59 06:59
Intake Total 395 / 395
Output Total 450 / 450 950 / 950
Balance -450 / -450 -555 / -555
[2024-10-05] MEDS: TRICOR 48 MG PO (10:35)
[2024-10-05] MEDS: SYMMETREL SYRUP 50 MG PO ×2 (10:35→19:47)
[2024-10-05] MEDS: VITAMIN D3 (cholecalciferol) 50 MCG PO (10:36)
[2024-10-05] MEDS: LOW STRENGTH ASPIRIN 81 MG PO (10:36)
[2024-10-05] MEDS: ATIVAN 0.5 MG PO (10:36)
[2024-10-05] MEDS: MIRALAX 17 GRAMS PO (10:36)
[2024-10-05 12:00] LABS: Glucose - Point of Care 112 mg/dl (70-99)
[2024-10-05 15:19] VITALS: BP 132/71
--- NOTE | 2024-10-05 16:10 | W.PN.UPDATE ---
Addendum entered and electronically signed by Jose Turner MD 10/05/24 16:59:
called saranya designated contact in chart ? no answer left message.
Original Note:
Update Note
Progress Note Update
patient seen chart reviewed. case discussed with nursing and with dr rojas. the patient was certainly more awake today than he has been . both of his eyes were open and he looked at me when i spoke to him although actual comments were rare and at
times i could not understand him. he remains confused given dementia. he did not have a good evening last night. nursing did not give him a prn but i am told by dr rojas that they struggled with him. i had decreased haldol to one mg given
rigidity noted at his wrists. he is now on symmetrel bid with slight improvement. will add a prn of o.5 mg haldol . will also call patient's to discuss whether hospice might be appropriate for him at this time as dr rojas suggested.
[2024-10-05] MEDS: HALDOL 1 MG PO (16:15)
--- NOTE | 2024-10-05 16:42 | CM ---
Patient remains on 1:1 .
Psychiatry involved.
Contact Franky Gavin at [facility] when ready for discharge.
[facility] will accept back after off 1:1x 48hr
PLAN: [facility] when stable
[2024-10-05 16:57] LABS: Glucose - Point of Care 131 mg/dl (70-99)
[2024-10-05] MEDS: HALDOL 0.5 MG PO (18:06)
[2024-10-05] MEDS: LOVENOX 40 MG SC (18:08)
[2024-10-05] MEDS: KLONOPIN 0.5 MG PO (19:47)
[2024-10-05 21:11] LABS: Glucose - Point of Care 163 mg/dl (70-99)
[2024-10-05 23:00] VITALS: BP 112/77
[2024-10-05 23:21] VITALS: BP 112/77
[2024-10-06 07:14] VITALS: BP 111/56
--- NOTE | 2024-10-06 08:13 | W.PN.HOSP.TC ---
Today's Communication/Plan
-
Consult hospice
Assessment / Plan
Assessment / Plan
Physical Exam
General: No Apparent respiratory Distress and Other (Patient is in 2 point restraints)
HEENT: PERRLA and Other (Dry mucous membranes)
Respiratory: Clear to Auscultation; Negative Wheezes, Rales or Rhonchi
Cardiac: Regular Rhythm and S1/S2
GI: Soft, Nontender, Nondistended and Normal Bowel Sounds
Musculoskeletal: No Edema
Skin: Warm and Dry
Neuro: awake but did not follow commands, non verbal, does not follow commands.
Psych: restraints
Patient is a 79-year-old male with past medical history significant for type 2 diabetes, hypertension, hypercalcemia, hyperlipidemia, dementia, hearing loss and GERD who presented to [facility] ED for evaluation of aggressive behaviors.
1. Advanced dementia with behavioral disturbance
Patient was combative at his memory care facility and is requiring med adjustments
Per , worsening behavior since the spring
At baseline, recognized the and son but unable to function independently, mostly combative behavior.
Treated UTI but no improvement in mentation.
TSH/vitamin B12 normal, folate also normal
Psychiatry following, continue medication adjustments as per psychiatry - continue daily Haldol/ Klonopin
Unable to come off restraints unless sedated by medications
Patient is not thriving despite 10 days hospitalization and continued to exhibit violent behavior even when staff trying to clean him
I recommend hospice and comfort level care at this point. agreed to consult hospice, she is fully aware that no progress has been made since admission.
[place] [facility] [place]
2. Acute UTI
- urine cultures growing Klebsiella, sensitive to Rocephin
-one last dose of IV Ceftriaxone 10/03, finished 7 days of IV Abx.
3. Left leg swelling and ecchymosis
Lt Leg x-ray: No acute findings.
Lt peripheral: US negative for DVT
4. Type 2 diabetes
Hemoglobin A1c 7.6
diet controlled at home
Continue sliding scale insulin
5. Hyperlipidemia
- continue fenofibrate
6. Hypernatremia
Resolved
7. Hyponatremia
Monitor
DVT PPx SQ lovenox
DNR
Total time spent to see the patient on the floor, examine the patient, review data and lab results, discuss treatment plan with patient, psychiatrist, , nursing staff around 59 minutes.
Anticipated Discharge: > 48 hours
Subjective/Interval History
-
Date of Service: October 06, 2024
per staff, very agitated early in evening but later slept after getting Haldol and Klonopin
Objective Data
-
Vital Signs:
Vital Signs
Temp Pulse Resp BP Pulse Ox
97.8 F 77 16 111/56 96
10/06/24 07:14 10/06/24 07:14 10/06/24 07:14 10/06/24 07:14 10/06/24 07:14
I&O
10/05/24 10/06/24 10/07/24
06:59 06:59 06:59
Intake Total 395 / 395 720 / 720
Output Total 950 / 950
Balance -555 / -555 720 / 720
[2024-10-06 08:15] LABS: Glucose - Point of Care 115 mg/dl (70-99)
[2024-10-06] MEDS: NOVOLOG FLEXPEN-LOW RESISTANCE SC ×3 (09:47→17:36)
[2024-10-06] MEDS: TRICOR 48 MG PO ×2 (09:50)
[2024-10-06] MEDS: MIRALAX 17 GRAMS PO (09:50)
[2024-10-06] MEDS: VITAMIN D3 (cholecalciferol) 50 MCG PO (09:51)
[2024-10-06] MEDS: LOW STRENGTH ASPIRIN 81 MG PO (09:51)
[2024-10-06] MEDS: SYMMETREL SYRUP 50 MG PO ×2 (09:51→19:20)
--- NOTE | 2024-10-06 12:04 | W.PN.UPDATE ---
Addendum entered and electronically signed by Yassine Rojas MD 10/08/24 15:38:
Addendum
Urine test came back clean.
End
Original Note:
Update Note
Progress Note Update
patient seen chart reviewed. discussed with nursing with case mgt patient's and one to one manager nursing. dr rojas apprised. the patient continues to struggle although at the present moment he is very quiet. rigidity at wrists is completely
gone. unclear if this is secondary to symmetrel or whether he was voluntarily guarding when this was noted on wednesday. mrs fredy and i discsused mr fredy's quality of life and the reality that there are not great prospects for him to improve.
this is not the life he would chosse to lead. 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 she has agreed to consider hospice and the consult has been placed. she will speak to hospice later today
--- NOTE | 2024-10-06 12:06 | CM ---
CM consult completed - hospice eval
spoke with options reviewed - request [facility]
cell [phone]
updated Franky Gavin at [facility]
PLAN: hospice Consult
--- NOTE | 2024-10-06 12:15 | HOSPNOTE ---
Spoke with spouse and discussed hospice and philosophy. Spouse is not sure about placement but I will discuss with Attending. More information to follow.
[2024-10-06 12:47] LABS: Glucose - Point of Care 131 mg/dl (70-99)
--- NOTE | 2024-10-06 13:39 | HOSPNOTE ---
Spoke with spouse and stated that the patient will be admitted inpatient hospice tomorrow and spouse will be here at 10am to sign consent forms. Attending in agreement with plan. I also asked for a PRN order for IV ativan since patient is spitting
out all pills. Attending and CM aware of plan.
[2024-10-06 14:49] VITALS: BP 96/38
[2024-10-06] MEDS: HALDOL 1 MG PO (15:04)
[2024-10-06] MEDS: LOVENOX 40 MG SC (16:59)
[2024-10-06] MEDS: HALDOL 0.5 MG PO (16:59)
[2024-10-06 17:27] LABS: Glucose - Point of Care 151 mg/dl (70-99)
[2024-10-06] MEDS: KLONOPIN 0.5 MG PO (19:20)
[2024-10-06 21:41] LABS: Glucose - Point of Care 144 mg/dl (70-99)
[2024-10-06 22:50] VITALS: BP 121/84
[2024-10-07 07:50] VITALS: BP 94/57
[2024-10-07 08:26] LABS: Glucose - Point of Care 108 mg/dl (70-99)
[2024-10-07] MEDS: NOVOLOG FLEXPEN-LOW RESISTANCE SC (08:42)
[2024-10-07] MEDS: SYMMETREL SYRUP 50 MG PO (08:42)
[2024-10-07] MEDS: VITAMIN D3 (cholecalciferol) 50 MCG PO (08:42)
[2024-10-07] MEDS: LOW STRENGTH ASPIRIN 81 MG PO (08:42)
[2024-10-07] MEDS: MIRALAX 17 GRAMS PO (08:42)
--- NOTE | 2024-10-07 08:55 | W.PN.HOSP.TC ---
Today's Communication/Plan
-
dc to hospice care
Assessment / Plan
Assessment / Plan
Physical Exam
General: Not in respiratory distress
HEENT: Normocephalic, Moist mucous membranes and Atraumatic
Respiratory: Clear
Cardiac: S1/S2 and Regular Rhythm
GI: Soft, Non Tender, Non Distended and Normal Bowel Sounds; No Organomegaly
Genito-urinary: No Duval
Musculoskeletal: No Clubbing, No Cyanosis and Edema,
Skin: Warm, Dry,
Neuro: Awake, but did not answer questions or follow commands, very restless, trying to climb out the bed.
Psych: agitated, no restraints
Patient is a 79-year-old male with past medical history significant for type 2 diabetes, hypertension, hypercalcemia, hyperlipidemia, dementia, hearing loss and GERD who presented to [facility] for evaluation of aggressive behaviors.
1. Advanced dementia with behavioral disturbance
Patient was combative at his memory care facility and is requiring med adjustments
Per , worsening behavior since the spring
At baseline, recognized the and son but unable to function independently, mostly combative behavior.
Treated UTI but no improvement in mentation.
TSH/vitamin B12 normal, folate also normal
Psychiatry following, continue medication adjustments as per psychiatry - continue daily Haldol/ Klonopin
Unable to come off restraints unless sedated by medications
Patient is not thriving despite 10 days hospitalization and continued to exhibit violent behavior even when staff trying to clean him
I recommend hospice and comfort level care at this point. agreed to consult hospice, she is fully aware that no progress has been made since admission and reports that per his living wishes, he would not choose such life quality..
Pt is from [facility] [place]
2. Acute UTI
- urine cultures growing Klebsiella, sensitive to Rocephin
-one last dose of IV Ceftriaxone 10/03, finished 7 days of IV Abx.
3. Left leg swelling and ecchymosis
Lt Leg x-ray: No acute findings.
Lt peripheral: US negative for DVT
4. Type 2 diabetes
Hemoglobin A1c 7.6
diet controlled at home
Continue sliding scale insulin
5. Hyperlipidemia
- continue fenofibrate
6. Hypernatremia
Resolved
7. Hyponatremia
Monitor
DVT PPx SQ lovenox
DNR
Total discharge time spent to see the patient on the floor, examine the patient, review data and lab results, discuss discharge plan with patient, psychiatrist, , hospice nurse, nursing staff around 65 minutes.
Anticipated Discharge: Today
Subjective/Interval History
-
Date of Service: October 07, 2024
Objective Data
-
Vital Signs:
Vital Signs
Temp Pulse Resp BP Pulse Ox
97.6 F 76 16 94/57 93
10/07/24 07:50 10/07/24 07:50 10/07/24 07:50 10/07/24 07:50 10/07/24 07:50
I&O
10/06/24 10/07/24 10/08/24
06:59 06:59 06:59
Intake Total 720 / 720 480 / 480
Balance 720 / 720 480 / 480
[2024-10-07] MEDS: HALDOL PO (09:46)
--- NOTE | 2024-10-07 10:51 | W.DCSUMMARY ---
Discharge Summary
Discharge Data
Date of Admission: 09/25/24
Date of Discharge: 10/07/24
-
Pending Results: No
Hospital Course
79 years old male with advanced dementia presented to the hospital with combative behavior. Initial plan was to adjust his psychiatry medications and treat presumed metabolic causes as hypernatremia/ urinary tract infection hoping to restore some
functionality and calm behavior to be able to go back to his memory unit. He was noted to have hypernatremia due to decreased water intake. Urine was positive for Klebsiella. Patient received antibiotics. His blood work showed improvement in
sodium level with no other metabolic derangement. Patient was followed by psychiatrist. Adjustments were made to his medications. His mentation did not improve. He continued to require physical restraints to control his violent behavior.
Patient was fluctuating between agitation status versus sedated status from medications. He had short periods of calm behavior when he was able to take food although he did not show ability to answer questions, hold conversation or follow commands
appropriately. Goal of care was discussed with his . She reported that patient would not want to continue with poor life quality. Psychiatrist discussed with the lack of improvement and recommended comfort care/ hospice measures. Family
met with liaison engineer. They signed on hospice for inpatient care to treat agitation status. Patient did not have hemodynamic instability. He was discharged to inpatient hospice services.
Discharge Plan
-
Patient Disposition: Hospice - Inpatient
Discharge Diagnosis/Procedures: Advanced dementia
Referrals:
Brenden Yang DO [Family Provider, Internal Medicine]
Prescriptions:
Discontinued
aspirin 81 mg Tablet,Delayed Release (Dr/Ec)
81 mg PO DAILY
fenofibrate nanocrystallized [Tricor] 145 mg Tablet
145 mg PO DAILY Qty: 0
polyethylene glycol 3350 17 gram Powder In Packet
17 g PO DAILYPRN PRN (Reason: constipation) Qty: 0 0RF
risperidone 0.5 mg Tablet,Disintegrating
0.5 mg PO BIDPRN PRN (Reason: acute agitation) Qty: 1 0RF
risperidone 0.5 mg Tablet,Disintegrating
0.5 mg PO DAILY Qty: 30 0RF
risperidone 1 mg Tablet,Disintegrating
1 mg PO HS Qty: 30 0RF
lorazepam 1 mg/1 ml cream
0.5 mg topical BIDPRN PRN (Reason: anxiety)
Patient Comments:
09/25/2024, filled on 09/21/2024 and expires after 14 days per paperwork from [facility].
Discharge Orders:
Discharge Patient (As Directed); Ordered 10/07/24
Ordered By: Yassine Stephens
Discharge Date and Time
Print Language: [place] ISLAND[place]
--- NOTE | 2024-10-07 11:22 | HOSPNOTE ---
Addendum entered by Lois Antunez RN 10/07/24 11:35:
Per staff and patients family patient has required restraints this hospital admission and when awake has been aggressive.
Original Note:
Met with patient's Julia, son and dil and reviewed the hospice philosophy, GIP level of care vs. home hospice understanding stated. Reviewed with patient's family when symptoms are managed patient will be discharged to home or SNF level of care
on hospice services, understanding stated. Patient signed onto GIP level of hospice care. Patient GIP appropriate for management of aggressive behavior, refusing PO medications and requiring IV medications. Per staff and patient's family when any
care is attempted patient becomes aggressive, hitting staff and has been spitting PO medication out, patient attempting to climb out of bed and not following redirection. Per family patient has been refusing most meals and minimally verbal,
patient's states patients dementia has advanced dramatically in the past month and he does not recognize her anymore. Reviewed the use of IV medications to manage symptoms, understanding stated.
[2024-10-07] MEDS: VALIUM INJECTION 2 MG IV (11:29)
--- NOTE | 2024-10-07 11:29 | CM ---
Spoke with Lois liaison from hospice.
Patient signed him to hospice
Per Lois GIP appropriate at this time
will be moving to 2nd floor once bed available
PLAN: Hospice
--- NOTE | 2024-10-07 12:00 | W.PN.UPDATE ---
Update Note
Progress Note Update
patient seen chart reviewed. discussed with nursing and with one to one. one to one tells me he has gotten upset when urinating and he has been urinating in dribs and drabs ?uti....obstruction. he had just produced a small amount of urine which i
sent for ua. patient was actually quite calm when i saw him. i asked him many simple ? but he just looked at me and said 'yes' has agreed to hospice true rojas has written the dc order. psych will sign off. i did not make any changes in psych
meds.
[2024-10-07 12:01] LABS: Urine Character Clear (Clear)
[2024-10-07 12:06] LABS: Glucose - Point of Care 154 mg/dl (70-99)
[2024-10-07] MEDS: NOVOLOG FLEXPEN-LOW RESISTANCE 1 UNITS SC (12:59)
--- NOTE | 2024-10-07 13:11 | PTCARENOTE ---
Patient becomes agitated each time he urinates. UA sent. Patient bladder scanned for 281. Valium given at 1129 for agitation, restlessness and throwing legs over bedrail with good relief. Patient sitting up, eating lunch.
--- NOTE | 2024-10-07 14:05 | PTCARENOTE ---
Patient discharge to Inpatient Hospice.
== END 2024-10-07 14:06 | disposition hospice, inpatient (51) | DRG 690 ==
LOC: 3 WEST ACU 15:24
PROVIDERS: Family Medicine; Nurse Practitioner Family; Physician Assistant; Psychiatry & Neurology Psychiatry; Student in an Organized Health Care Education/Training Program; ADMITTING PHYSICIAN Internal Medicine; ATTENDING PHYSICIAN Internal Medicine; EMERGENCY PHYSICIAN Emergency Medicine; FAMILY PHYSICIAN Internal Medicine Geriatric Medicine; OTHER PHYSICIAN Psychiatry & Neurology Psychiatry
DX: N39.0 Urinary tract infection, site not specified (principal); F03.918 Unspecified dementia, unspecified severity, with other behavioral disturbance; E87.0 Hyperosmolality and hypernatremia; N17.9 Acute kidney failure, unspecified; E87.1 Hypo-osmolality and hyponatremia; E86.0 Dehydration; E11.9 Type 2 diabetes mellitus without complications; I10 Essential (primary) hypertension; K21.9 Gastro-esophageal reflux disease without esophagitis; R22.42 Localized swelling, mass and lump, left lower limb; E78.1 Pure hyperglyceridemia; Z66 Do not resuscitate; Z79.899 Other long term (current) drug therapy; Z51.5 Encounter for palliative care; Z78.1 Physical restraint status
CPT/HCPCS: 73552; 73590; 80048; 80053; 81003; 81015; 82140; 82306; 82607; 82746; 82962; 83036; 84443; 85025; 85027; 85610; 85730; 87070; 87077; 87086; 87186; 93005; 93971; 96361; 96374; 99285

== ENCOUNTER 2024-10-07 14:07 | Inpatient (IN) | payer OTHER, SELFPAY ==
--- NOTE | 2024-10-07 11:49 | HOSPNOTE ---
Met with patient's Julia, son and dil and reviewed the hospice philosophy, GIP level of care vs. home hospice understanding stated. Reviewed with patient's family when symptoms are managed patient will be discharged to home or SNF level of care
on hospice services, understanding stated. Patient signed onto GIP level of hospice care. Patient GIP appropriate for management of aggressive behavior, refusing PO medications and requiring IV medications. Per staff and patient's family when any
care is attempted patient becomes aggressive, hitting and scratching staff and has been spitting PO medication out, patient attempting to climb out of bed and not following redirection. Patient is on one to one monitoring for safety, has required
restraints this admission. Per family patient has been sleeping a lot more, while awake is very aggressive. Per family patient has been refusing most meals and minimally verbal, patient's states patients dementia has advanced dramatically in
the past month and he does not recognize her anymore. Reviewed the use of IV medications to manage symptoms, understanding stated. Conferred with staff nurse Cathie and physician updated.
--- NOTE | 2024-10-07 14:00 | PTCARENOTE ---
Patient become agitated and restless when urinating. UA sent prior to transfer to hospice and was negative. Patient bladder scanned for 281 prior to being transferred to hospice.
[2024-10-07] MEDS: HALDOL 1 MG IV (15:20)
[2024-10-07 16:43] LABS: Glucose - Point of Care 133 mg/dl (70-99)
[2024-10-07] MEDS: VALIUM INJECTION 5 MG IV (18:45)
[2024-10-07 21:42] LABS: Glucose - Point of Care 232 mg/dl (70-99)
[2024-10-07 22:41] VITALS: BP 103/49
[2024-10-08 06:50] VITALS: BP 105/54
--- NOTE | 2024-10-08 10:06 | W.PN.HSP.1 ---
Assessment / Plan
-
A/P:
# Advanced dementia with behavioral disturbance
Patient failed to show improvement despite adjusting medications by psychiatry, recommended hospice.
GOC discussed with and decided comfort/ hospice care
# s/p treatment for UTI with no improvement in mentation or combativeness
Monitor for retention
# Type 2 diabetes
change to DM diet
# HTN
Normal BP without medications
# Hyperlipidemia
DNR
Today's Communication
c/w comfort care
Diabetic diet
Interval History
-
Given Haldol and Diazepam yesterday
Did not need restraints over night
Review of Systems
-
Unable to obtain full review of systems at this time due to: Other (Dementia, did not talk )
Physical Exam
-
Temp Pulse Resp BP Pulse Ox
97.8 F 78 20 105/54 97
10/08/24 06:50 10/08/24 06:50 10/08/24 06:50 10/08/24 06:50 10/08/24 06:50
General: No Apparent Distress and Comfortable
Respiratory: Clear to Auscultation
Cardiology: Regular Rhythm
GI: Soft, Nontender and Nondistended
Genito-Urinary: Negative Duval
Musculoskeletal: No Clubbing, No Cyanosis and No Edema
Skin: Negative Rash
Neuro: Awake
Psych: Calm
[2024-10-08] MEDS: LOW STRENGTH ASPIRIN 81 MG PO (10:27)
--- NOTE | 2024-10-08 10:31 | HOSPNOTE ---
Patient GIP for management of agitation. Patient on one to one monitoring for management of agitation and fall risk, safety concerns. Patient received one PRN dose of Haldol and Valium IV for management of symptoms, refused PO medications. Spoke
with patients RN Cathie who stated patient was very agitated yesterday, pulling at his clothes, attempting to climb out of bed, refusing food. Cathie stated patient has been sleeping for most of the morning today. Called patients Julia and left
an update with a request for a return call. Discharge planning continues.
--- NOTE | 2024-10-08 14:27 | PTCARENOTE ---
Patient appears comfortable today and much less agitated. Patient oriented to self, will follow simple commands, conversation is mostly confused. Patient is able to answer yes and no questions. Patient is making attempts to climb OOB, usually due to
having to void. 1:1 maintained for patient safety.
[2024-10-08] MEDS: VALIUM INJECTION 5 MG IV ×2 (15:00→21:09)
--- NOTE | 2024-10-08 15:00 | PTCARENOTE ---
Patient is agitated, restless, trying to climb OOB, trying to hit staff. Valium given ay 1500 with no relief. Haldol given at 1543. Patient repositioned, given cookies and gingerale as a distraction.
[2024-10-08] MEDS: HALDOL 1 MG IV ×2 (15:43→20:16)
[2024-10-08 16:11] VITALS: BP 126/68
[2024-10-08 23:11] VITALS: BP 121/59
--- NOTE | 2024-10-09 05:59 | PTCARENOTE ---
Pt restless and agitated early in the evening, PRN medication administered as ordered. Pt not needing PRN medications the rest of the night. Pt only noted to be restless when needing to urinate. Pt grossly incontinent, frequent shellie care. Pt stiff
and rigid and lead section supervisor when attempting to turn and reposition. Otherwise sleeping comfortably. 1:1 observation maintained overnight. bed bath provided this am. Will continue to monitor.
[2024-10-09 07:12] VITALS: BP 112/51
[2024-10-09] MEDS: LOW STRENGTH ASPIRIN 81 MG PO (10:36)
[2024-10-09] MEDS: HALDOL 1 MG IV ×3 (12:05→18:02)
[2024-10-09] MEDS: VALIUM INJECTION 5 MG IV ×2 (12:53→17:06)
--- NOTE | 2024-10-09 13:43 | W.PN.HOSP.TC ---
Today's Communication/Plan
-
Comfort plan of care
Assessment / Plan
Assessment / Plan
A/P:
# Advanced dementia with behavioral disturbance
Patient failed to show improvement despite adjusting medications by psychiatry, recommended hospice.
GOC discussed with and decided comfort/ hospice care
# s/p treatment for UTI with no improvement in mentation or combativeness
Monitor for retention
# Type 2 diabetes
change to DM diet
# HTN
Normal BP without medications
# Hyperlipidemia
DNR
Anticipated Discharge: > 48 hours
Subjective/Interval History
-
Date of Service: October 09, 2024
Patient's responses to questions are murmurs and unintelligible. Patient is calm and sitter is at bedside.
Objective Data
-
Vital Signs:
Vital Signs
Temp Pulse Resp BP Pulse Ox
97.5 F 79 18 112/51 96
10/09/24 07:12 10/09/24 07:12 10/09/24 07:12 10/09/24 07:12 10/09/24 07:12
I&O
10/08/24 10/09/24 10/10/24
06:59 06:59 06:59
Intake Total 700 / 700 1680 / 1680
Balance 700 / 700 1680 / 1680
Review of Systems
-
Unable to obtain full review of systems at this time due to: Dementia
Physical Exam
-
General: No Apparent Distress
HEENT: Moist Mucous Membranes, Anicteric and PERRLA
Respiratory: Clear to Auscultation; Negative Wheezes, Rales or Rhonchi
Cardiac: Regular Rhythm and S1/S2; Negative Murmur, Rub or Gallop
GI: Soft, Nontender, Nondistended and Normal Bowel Sounds
Musculoskeletal: No Edema
Skin: Warm and Dry; Negative Rash, Ulcers or Lesions
Neuro: Awake
Hematologic / Lymphatic: No Lymphadenopathy
Psych: Calm
--- NOTE | 2024-10-09 14:31 | HOSPNOTE ---
I have requested a bed on [address] since patient is on hospice services. Patient will be moved to bed 2136. Patient needs to be medicated for management of agitation patient can be very violent and needs to be properly medicated. Patient will be seen
daily by hospice nurse.
[2024-10-09 14:57] VITALS: BP 124/74
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
--- NOTE | 2024-10-09 15:30 | HOSPNOTE ---
Joss Beaulieu' was resting comfortably, engaged throughout the visit, denied pain. He was calm and smiling, in good spirits. His of 46 years, Julia, had just visited. Andrea shared his interest in cars and motorcycles, talked about the people
and pets in his life. Medical Transport Specialist provided emotional and spiritual support through presence, dialogue, gentle touch, and prayer. Medical Transport Specialist spoke with Julia, by phone, and confirmed that Andrea has Mosque background. He has supportive family.
Medical Transport Specialist will continue support through visits 2x week.
--- NOTE | 2024-10-09 15:30 | CM ---
Inpatient hospice, comfort measures, plan to transfer to [address] [place] [address].
Plan; GIP comfort care.
[2024-10-09] MEDS: MORPHINE SULFATE 2 MG IV ×2 (17:41→19:04)
[2024-10-09] MEDS: VALIUM INJECTION 2 MG IV (19:20)
[2024-10-10 07:44] VITALS: BP 103/58
--- NOTE | 2024-10-10 09:21 | W.PN.HOSP.TC ---
Today's Communication/Plan
-
Continue comfort care measures only
Assessment / Plan
Assessment / Plan
# Advanced dementia with behavioral disturbance
Patient failed to show improvement despite adjusting medications by psychiatry, recommended hospice.
Continue comfort care measures only
#S/p treatment for UTI with no improvement in mentation or combativeness
Monitor for retention
# Type 2 diabetes
Change to DM diet
# HTN
Normal BP without medications
# Hyperlipidemia
DNR
Physical Exam
General: No acute distress
HEENT: Normocephalic, Atraumatic, EOMI, MMM
Respiratory: Clear to Auscultation bilaterally
Cardiac: Normal S1/S2, Regular Rate and Rhythm
GI: Soft, Nontender, Nondistended, Normal Bowel Sounds
Extremities: No Clubbing, Cyanosis, or Edema
Neuro: Confused
Psych: Intermittent agitation noted
Anticipated Discharge: > 48 hours
Subjective/Interval History
-
Date of Service: October 10, 2024
Patient continues to be confused and intermittently agitated.
Objective Data
-
Vital Signs:
Vital Signs
Temp Pulse Resp BP Pulse Ox
97.5 F 70 16 103/58 98
10/10/24 07:44 10/10/24 07:44 10/10/24 07:44 10/10/24 07:44 10/10/24 07:44
I&O
10/09/24 10/10/24 10/11/24
06:59 06:59 06:59
Intake Total 1679 / 1679
Balance 1679 / 1679
[2024-10-10] MEDS: LOW STRENGTH ASPIRIN PO (09:34)
[2024-10-10] MEDS: VALIUM INJECTION 5 MG IV ×2 (10:24→17:17)
[2024-10-10] MEDS: MORPHINE SULFATE 2 MG IV ×4 (10:24→17:18)
--- NOTE | 2024-10-10 10:43 | CM ---
Reviewed the chart notes. CM continues to be available to patient/family.
Plan: GIP hospice continues.
[2024-10-10] MEDS: MORPHINE SULFATE IV (11:49)
[2024-10-10] MEDS: HALDOL 1 MG IV ×2 (12:52→14:59)
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
[2024-10-10 19:24] VITALS: BP 121/55
[2024-10-11] MEDS: VALIUM INJECTION 5 MG IV ×3 (03:32→15:07)
[2024-10-11] MEDS: HALDOL 1 MG IV ×5 (04:22→22:52)
--- NOTE | 2024-10-11 07:20 | W.PN.HOSP.TC ---
Today's Communication/Plan
-
see bold
Assessment / Plan
Assessment / Plan
# Advanced dementia with behavioral disturbance
Patient failed to show improvement despite adjusting medications by psychiatry, recommended hospice.
Continue comfort care measures only, change IV Haldol to every 2 hours scheduled as per psychiatry recommendations
#S/p treatment for UTI with no improvement in mentation or combativeness
Insert Duval for end-of-life care
# Type 2 diabetes
Diabetic diet as tolerated
# HTN
Normal BP without medications
# Hyperlipidemia
DNR
Physical Exam
General: No acute distress
HEENT: Normocephalic, Atraumatic, EOMI, MMM
Respiratory: Clear to Auscultation bilaterally
Cardiac: Normal S1/S2, Regular Rate and Rhythm
GI: Soft, Nontender, Nondistended, Normal Bowel Sounds
Extremities: No Clubbing, Cyanosis, or Edema
Neuro: Confused
Psych: Intermittent agitation noted
Anticipated Discharge: 24 - 48 hours
Subjective/Interval History
-
Date of Service: October 11, 2024
Nursing staff reports patient is not eating or drinking. He is agitated when he is not medicated. No fever, no vomiting.
Objective Data
-
Vital Signs:
Vital Signs
Temp Pulse Resp BP Pulse Ox
98.0 F 78 16 121/55 98
10/10/24 19:24 10/10/24 19:24 10/10/24 19:24 10/10/24 19:24 10/10/24 19:24
[2024-10-11 07:39] VITALS: BP 113/52
[2024-10-11] MEDS: MORPHINE SULFATE 2 MG IV ×3 (09:01→16:10)
--- NOTE | 2024-10-11 09:22 | CM ---
Reviewed the chart notes. CM continues to be available to patient/family.
Plan: GIP Hospice.
--- NOTE | 2024-10-11 13:37 | HOSPNOTE ---
Spoke with Attending Dr Balbuena and discussed patient's agitation and his incontinence. When the patient is medicated he is calm once the medications are needed again patient becomes extremely agitated and is extremely strong. The plan is to continue
with appropriately medicating. The patient continues to be inpatient appropriate for management of severe agitation. Patient will be seen daily by hospice.
[2024-10-11 19:00] VITALS: BP 132/70
[2024-10-12] MEDS: HALDOL 1 MG IV ×6 (00:09→11:12)
[2024-10-12] MEDS: MORPHINE SULFATE 2 MG IV ×7 (00:16→18:47)
[2024-10-12 07:25] VITALS: BP 127/73
--- NOTE | 2024-10-12 09:00 | W.PN.HOSP.TC ---
Today's Communication/Plan
-
Continue comfort care measures only
Assessment / Plan
Assessment / Plan
# Advanced dementia with behavioral disturbance
Patient failed to show improvement despite adjusting medications by psychiatry, recommended hospice.
Continue comfort care measures only, change IV Haldol to 2 mg every 4 hours scheduled
#S/p treatment for UTI with no improvement in mentation or combativeness
Duval ordered for end-of-life care
# Type 2 diabetes
Diabetic diet as tolerated
# HTN
Normal BP without medications
# Hyperlipidemia
DNR
Physical Exam
General: No acute distress
HEENT: Normocephalic, Atraumatic, EOMI, MMM
Respiratory: Clear to Auscultation bilaterally
Cardiac: Normal S1/S2, Regular Rate and Rhythm
GI: Soft, Nontender, Nondistended, Normal Bowel Sounds
Extremities: No Clubbing, Cyanosis, or Edema
Neuro: Confused
Psych: Intermittent agitation noted
Anticipated Discharge: > 48 hours
Subjective/Interval History
-
Date of Service: October 12, 2024
Patient is resting calmly uncomfortably.
Objective Data
-
Vital Signs:
Vital Signs
Temp Pulse Resp BP Pulse Ox
97.5 F 84 16 127/73 99
10/12/24 07:25 10/12/24 07:25 10/12/24 07:25 10/12/24 07:25 10/12/24 07:25
I&O
10/11/24 10/12/24 10/13/24
06:59 06:59 06:59
Intake Total 0 / 0
Balance 0 / 0
[2024-10-12] MEDS: VALIUM INJECTION 5 MG IV ×3 (11:13→16:20)
[2024-10-12] MEDS: HALDOL 2 MG IV ×3 (14:48→22:43)
--- NOTE | 2024-10-12 15:30 | CM ---
Chart reviewed. Comfort Care measures only at this time
[2024-10-12] MEDS: ROBINUL 0.2 MG IV (15:37)
[2024-10-12 19:00] VITALS: BP 148/86
[2024-10-13] MEDS: MORPHINE SULFATE 2 MG IV ×5 (02:08→15:51)
[2024-10-13] MEDS: ROBINUL 0.2 MG IV ×3 (03:02→13:09)
[2024-10-13] MEDS: HALDOL 2 MG IV ×6 (03:03→23:15)
[2024-10-13 07:40] VITALS: BP 122/61
[2024-10-13] MEDS: VALIUM INJECTION 5 MG IV ×2 (07:55→13:09)
--- NOTE | 2024-10-13 08:45 | W.PN.HOSP.TC ---
Today's Communication/Plan
-
Continue comfort care measures only
Assessment / Plan
Assessment / Plan
# Advanced dementia with behavioral disturbance
Patient failed to show improvement despite adjusting medications by psychiatry, recommended hospice.
Continue comfort care measures only, changed IV Haldol to 2 mg every 4 hours scheduled
#S/p treatment for UTI with no improvement in mentation or combativeness
Duval ordered for end-of-life care
# Type 2 diabetes
Diabetic diet as tolerated
# HTN
Normal BP without medications
# Hyperlipidemia
DNR
Physical Exam
General: No acute distress
HEENT: Normocephalic, Atraumatic
Respiratory: Clear to Auscultation bilaterally
Cardiac: Normal S1/S2, Regular Rate and Rhythm
GI: Soft, Nontender, Nondistended, Normal Bowel Sounds
Extremities: No Clubbing, Cyanosis, or Edema
Neuro: Confused
Psych: Intermittent agitation noted
Anticipated Discharge: > 48 hours
Subjective/Interval History
-
Date of Service: October 13, 2024
Patient resting quietly. No fever, no vomiting.
Objective Data
-
Vital Signs:
Vital Signs
Temp Pulse Resp BP Pulse Ox
97.7 F 95 16 122/61 95
10/13/24 07:40 10/13/24 07:40 10/13/24 07:40 10/13/24 07:40 10/13/24 07:40
I&O
10/12/24 10/13/24 10/14/24
06:59 06:59 06:59
Intake Total 0 / 0
Output Total 350 / 350
Balance 0 / 0 -350 / -350
--- NOTE | 2024-10-13 09:23 | CM ---
Reviewed the chart notes. CM continues to be available to patient/family.
Plan: Continue with [facility] hospice.
--- NOTE | 2024-10-13 13:11 | HOSPNOTE ---
Patient appears comfortable at this time. Patient constantly needs to be medicated for severe agitation. Patient now has a livingston catheter draining brianna urine and only about 50ml. Patient continues to be inpatient appropriate for management of
severe agitation. Patient will be seen daily.
[2024-10-13 20:09] VITALS: BP 154/79
[2024-10-14] MEDS: VALIUM INJECTION 5 MG IV ×3 (00:29→19:53)
[2024-10-14] MEDS: MORPHINE SULFATE 2 MG IV ×6 (00:30→23:32)
[2024-10-14] MEDS: HALDOL 2 MG IV ×6 (02:12→22:40)
[2024-10-14] MEDS: ROBINUL 0.2 MG IV ×3 (05:44→23:32)
[2024-10-14 07:00] VITALS: BP 138/72
--- NOTE | 2024-10-14 08:41 | W.PN.HOSP.TC ---
Today's Communication/Plan
-
see bold
Assessment / Plan
Assessment / Plan
# Advanced dementia with behavioral disturbance
Patient failed to show improvement despite adjusting medications by psychiatry, recommended hospice.
Continue comfort care measures only, changed IV Haldol to 2 mg every 4 hours scheduled
#S/p treatment for UTI with no improvement in mentation or combativeness
Duval ordered for end-of-life care
# Type 2 diabetes
Diabetic diet as tolerated
# HTN
Normal BP without medications
# Hyperlipidemia
DNR
Physical Exam
General: No acute distress
HEENT: Normocephalic, Atraumatic
Respiratory: Clear to Auscultation bilaterally
Cardiac: Normal S1/S2, Regular Rate and Rhythm
GI: Soft, Nontender, Nondistended, Normal Bowel Sounds
Extremities: No Clubbing, Cyanosis, or Edema
Neuro: Confused
Psych: Intermittent agitation noted
Anticipated Discharge: > 48 hours
Subjective/Interval History
-
Date of Service: October 14, 2024
Patient resting comfortably. No fever, no vomiting.
Objective Data
-
Vital Signs:
Vital Signs
Temp Pulse Resp BP Pulse Ox
98.4 F 103 16 138/72 96
10/14/24 07:00 10/14/24 07:00 10/14/24 07:00 10/14/24 07:00 10/14/24 07:00
I&O
10/13/24 10/14/24 10/15/24
06:59 06:59 06:59
Intake Total 0 / 0
Output Total 350 / 350 450 / 450
Balance -350 / -350 -450 / -450
--- NOTE | 2024-10-14 11:39 | CHAP ---
Andrea was sleeping, non-responsive. He did not show signs of pain, but pulled at the sheets occasionally. No family was present. Management Consultant provided emotional and spiritual support through presence, words of comfort, and prayer. Will continue
support through visits 2x week.
--- NOTE | 2024-10-14 14:59 | HOSPNOTE ---
Patient asleep atov, twitching. Still having agitation at times but does getting relief with IV Diazepam, Haldol and Morphine. Duval intact with brianna blood tinged urine, will occasionally pull on catheter. Has not had anything PO since yesterday.
Spouse at bedside, offering emotional support and providing active listening. Patient will remain GIP for management of agitation and pain with IV medications. Discharge planning to continue.
[2024-10-14 19:42] VITALS: BP 148/79
[2024-10-15] MEDS: HALDOL 2 MG IV ×5 (03:08→22:13)
[2024-10-15] MEDS: MORPHINE SULFATE 2 MG IV ×3 (06:38→12:47)
[2024-10-15 07:10] VITALS: BP 102/70
[2024-10-15] MEDS: ROBINUL 0.2 MG IV ×2 (08:21→12:24)
[2024-10-15] MEDS: VALIUM INJECTION 5 MG IV ×4 (08:23→22:13)
--- NOTE | 2024-10-15 08:44 | W.PN.HOSP.TC ---
Today's Communication/Plan
-
see bold
Assessment / Plan
Assessment / Plan
# Advanced dementia with behavioral disturbance
Patient failed to show improvement despite adjusting medications by psychiatry, recommended hospice.
Continue comfort care measures only, changed IV Haldol to 2 mg every 4 hours scheduled
Discussed with hospice, patient is still intermittently agitated, will change IV Valium to 2 mg every 4 hours, start morphine drip
#S/p treatment for UTI with no improvement in mentation or combativeness
Duval ordered for end-of-life care
# Type 2 diabetes
Diabetic diet as tolerated
# HTN
Normal BP without medications
# Hyperlipidemia
DNR
Total time spent to see the patient on the floor, examine the patient, review data and lab results, discuss treatment plan with patient, nursing staff around 35 minutes.
Physical Exam
General: No acute distress
HEENT: Normocephalic, Atraumatic
Respiratory: Clear to Auscultation bilaterally
Cardiac: Normal S1/S2, Regular Rate and Rhythm
GI: Soft, Nontender, Nondistended, Normal Bowel Sounds
Extremities: No Clubbing, Cyanosis, or Edema
Neuro: Confused
Psych: Intermittent agitation noted
Anticipated Discharge: > 48 hours
Subjective/Interval History
-
Date of Service: October 15, 2024
Nursing staff reports intermittent agitation. No fever, no vomiting.
Objective Data
-
Vital Signs:
Vital Signs
Temp Pulse Resp BP Pulse Ox
97.7 F 96 16 102/70 94
10/15/24 07:10 10/15/24 07:10 10/15/24 07:10 10/15/24 07:10 10/15/24 07:10
I&O
10/14/24 10/15/24 10/16/24
06:59 06:59 06:59
Intake Total 0 / 0
Output Total 450 / 450 500 / 500
Balance -450 / -450 -500 / -500
--- NOTE | 2024-10-15 12:17 | HOSPNOTE ---
Patient appears to be getting restless, facial grimacing and moaning. Agitation increases with care. Flacc moderate. Continues to have breakthrough agitation. Floor nurse reports patient pulling at catheter. Urine dark brianna with blood. No family at
bedside. Out reach to Dr. Balbuena regarding breakthrough agitation and ordered to start Morphine drip and schedule Valium Q4. Patient to remain GIP for the titration of IV medications to manage symptoms. Discharge planning to continue.
[2024-10-15] MEDS: MORPHINE 100 IV (14:09)
[2024-10-15 19:27] VITALS: BP 120/73
[2024-10-15] MEDS: HALDOL IV (20:47)
[2024-10-16] MEDS: VALIUM INJECTION 5 MG IV ×5 (02:07→21:49)
[2024-10-16] MEDS: HALDOL 2 MG IV ×2 (02:07→06:01)
[2024-10-16 07:18] VITALS: BP 104/65
--- NOTE | 2024-10-16 09:28 | CM ---
Reviewed the chart notes. Patient started on morphine gtt. CM continues to be available to patient/family.
Plan: GIP hospice continues.
--- NOTE | 2024-10-16 09:57 | W.PN.HOSP.TC ---
Today's Communication/Plan
-
c/w hospice care
f/w hospice nurse recommendations
Stopped Haldol as pt seems sedated with morphine.
Assessment / Plan
Assessment / Plan
# Advanced dementia with behavioral disturbance
Patient failed to show improvement despite adjusting medications by psychiatry, recommended hospice.
Continue comfort care measures only, seems sedated with morphine, will stop ATC IV Haldol.
Discussed with hospice, c/w morphine drip
#S/p treatment for UTI with no improvement in mentation or combativeness
Duval ordered for end-of-life care
# Type 2 diabetes
Diabetic diet as tolerated
# HTN
Normal BP without medications
# Hyperlipidemia
DNR
Total time spent to see the patient on the floor, examine the patient, review data and lab results, discuss treatment plan with patient, nursing staff around 35 minutes.
Physical Exam
General: No acute distress
HEENT: Normocephalic, Atraumatic
Respiratory: Clear to Auscultation bilaterally
Cardiac: Normal S1/S2, Regular Rate and Rhythm
GI: Soft, Nontender, Nondistended, Normal Bowel Sounds
Extremities: No Clubbing, Cyanosis, or Edema
Neuro: sedated, did not open eyes or respond.
Psych: no agitation noted.
Anticipated Discharge: 24 - 48 hours
Subjective/Interval History
-
Date of Service: October 16, 2024
Sedated and not responsive
Objective Data
-
Vital Signs:
Vital Signs
Temp Pulse Resp BP Pulse Ox
100.7 F H 121 18 104/65 84
10/16/24 07:18 10/16/24 07:18 10/16/24 07:18 10/16/24 07:18 10/16/24 07:18
I&O
10/15/24 10/16/24 10/17/24
06:59 06:59 06:59
Intake Total 0 / 0
Output Total 500 / 500 570 / 570
Balance -500 / -500 -570 / -570
[2024-10-16] MEDS: VALIUM INJECTION IV ×2 (10:42→18:04)
[2024-10-16] MEDS: MORPHINE SULFATE 2 MG IV (11:16)
--- NOTE | 2024-10-16 11:56 | HOSPNOTE ---
Patient is now a morphine drip and scheduled valium and prn haldol. Patient has a livingston catheter which is draining brianna colored urine and the amount is decreased. The patient still needs to be medicated prior to any care due to severe agitation.
Patient continues to be inpatient appropriate to manage agitation with IV medications. We will see patient daily.
[2024-10-16 19:07] VITALS: BP 104/62
[2024-10-17] MEDS: VALIUM INJECTION IV ×4 (02:07→16:12)
[2024-10-17] MEDS: MORPHINE 100 IV (02:14)
[2024-10-17] MEDS: VALIUM INJECTION 5 MG IV ×2 (04:24→21:05)
[2024-10-17 07:05] VITALS: BP 120/62
--- NOTE | 2024-10-17 09:04 | W.PN.HOSP.TC ---
Today's Communication/Plan
-
.
Assessment / Plan
Assessment / Plan
# Advanced dementia with behavioral disturbance
Patient failed to show improvement despite adjusting medications by psychiatry, recommended hospice.
Continue comfort care measures only, seems sedated with morphine, will stop ATC IV Haldol.
Discussed with hospice, c/w morphine drip
#S/p treatment for UTI with no improvement in mentation or combativeness
Duval ordered for end-of-life care
# Type 2 diabetes
Diabetic diet as tolerated
# HTN
Normal BP without medications
# Hyperlipidemia
DNR
Total time spent to see the patient on the floor, examine the patient, review data and lab results, discuss treatment plan with patient, nursing staff around 35 minutes.
Physical Exam
General: No acute distress
HEENT: Normocephalic, Atraumatic
Respiratory: Clear to Auscultation bilaterally
Cardiac: Normal S1/S2, Regular Rate and Rhythm
GI: Soft, Nontender, Nondistended, Normal Bowel Sounds
Extremities: No Clubbing, Cyanosis, or Edema
Neuro: sedated, did not open eyes or respond.
Psych: no agitation noted.
Anticipated Discharge: 24 - 48 hours
Subjective/Interval History
-
Date of Service: October 17, 2024
unresponsive
Objective Data
-
Vital Signs:
Vital Signs
Temp Pulse Resp BP Pulse Ox
98.3 F 100 12 120/62 94
10/17/24 07:05 10/17/24 07:05 10/17/24 07:05 10/17/24 07:05 10/17/24 07:05
I&O
10/16/24 10/17/24 10/18/24
06:59 06:59 06:59
Intake Total 0 / 0 0 / 0
Output Total 570 / 570 275 / 275
Balance -570 / -570 -275 / -275
--- NOTE | 2024-10-17 09:20 | HOSPNOTE ---
Joss Beaulieu' was resting comfortably, eyes open but not making eye contact. Taking slow, deep breaths. Visual Merchandising Specialist provided emotional and spiritual support through presence, words of comfort, Scripture reading and prayer. Gave update to spouse
Julia. Will continue support through visits 2x week.
--- NOTE | 2024-10-17 11:20 | HOSPNOTE ---
Patient is active is having long periods of apnea noted. No family was present at the time of my visit. Patient will most likely pass today, patient is on a morphine drip and appears comfortable at this time. Encouraged to medicate prior to any care
for severe agitation.
--- NOTE | 2024-10-17 12:30 | CM ---
Patient seen at bedside on . Patient followed by JESSICA JOSEPH. CM continues to be available to patient/family.
Plan: [facility] hospice continues.
[2024-10-17 19:17] VITALS: BP 103/64
[2024-10-18] MEDS: VALIUM INJECTION IV ×6 (01:07→21:59)
[2024-10-18 07:46] VITALS: BP 116/65
--- NOTE | 2024-10-18 08:39 | W.PN.HOSP.TC ---
Today's Communication/Plan
-
Give rectal Tylenol.
Assessment / Plan
Assessment / Plan
# Advanced dementia with behavioral disturbance
Patient failed to show improvement despite adjusting medications by psychiatry, recommended hospice.
Continue comfort care measures only, seems sedated with morphine.
Discussed with hospice, c/w morphine drip
#fever, give rectal Tylenol.
#S/p treatment for UTI with no improvement in mentation or combativeness
Duval ordered for end-of-life care
# Type 2 diabetes
# HTN
# Hyperlipidemia
DNR
Total time spent to see the patient on the floor, examine the patient, review data and lab results, discuss treatment plan with patient, nursing staff around 35 minutes.
Physical Exam
General: slow respiratory rate
HEENT: Normocephalic, Atraumatic
Respiratory: Clear to Auscultation bilaterally
Cardiac: Normal S1/S2, Regular Rate and Rhythm
GI: Soft, Nontender, Nondistended, Normal Bowel Sounds
Extremities: No Clubbing, Cyanosis, or Edema
Neuro: sedated, did not open eyes or respond.
Psych: no agitation noted.
Anticipated Discharge: 24 - 48 hours
Subjective/Interval History
-
Date of Service: October 18, 2024
Objective Data
-
Vital Signs:
Vital Signs
Temp Pulse Resp BP Pulse Ox
101.5 F H 111 10 116/65 85
10/18/24 07:46 10/18/24 07:46 10/18/24 07:46 10/18/24 07:46 10/18/24 07:46
I&O
10/17/24 10/18/24 10/19/24
06:59 06:59 06:59
Intake Total 0 / 0
Output Total 275 / 275 375 / 375
Balance -275 / -275 -375 / -375
[2024-10-18] MEDS: TYLENOL/FEVERALL 650 MG RECTAL (10:18)
--- NOTE | 2024-10-18 10:26 | CM ---
Reviewed the chart notes. Patient continues with morphine gtt. CM continues to be available to patient/family.
Plan: [facility] hospice continues.
--- NOTE | 2024-10-18 11:14 | HOSPNOTE ---
Patient is actively dying, long periods of apnea noted. No family bedside however I spoke with the spouse and emotional support provided. Patient continues on a morphine drip and requires to be medicated prior to any care or repositioning. Patient
will be seen daily and continues to be inpatient appropriate.
--- NOTE | 2024-10-18 13:57 | HOSPNOTE ---
NARRATIVE: CORPORATE COMM[employer]ICATIONS ASSOCIATE VISITED PATIENT TO CONDUCT WEEKLY VISIT AND TO PROVIDE SUPPORTIVE SERVICES. NURSE REPORTED NO CONCERNS, MEDICATIONS ADMINISTERED, AND PATIENT IS COMFORTABLE. SHELTER MONITOR GREETED PATIENT UPON ENTERING HIS ROOM, NO RESPONSE.
PATIENT ASLEEP AND APPEARED TO BE RESTING COMFORTABLY, NO SIGNS OF PAIN AND/OR DISTRESS OBSERVED. NO FAMILY MEMBERS PRESENT DURING THIS VISIT. PRAYER AND EMOTIONAL SUPPORT PROVIDED. SHELTER MONITOR CONTACTED PATIENT'S SPOUSE MELINA TO CHECK ON HER. SHE REPORTED
SHE'S HANGING IN THERE AND THAT SHE WAS TOLD IT COULD BE ANY DAY NOW. SHE REPORTED SHE AND PATIENT'S SON PAT AND PATIENT'S GRANDSON SON SMITH WILL VISIT THIS AFTERNOON. SPOUSE REPORTED FAMILY IS SUPPORTIVE AND COPING APPROPRIATELY. BEREAVEMENT
SERVICES DECLINED AT THIS TIME. EMOTIONAL SUPPORT PROVIDED
PATIENT MEETS [facility] FOR SN ASSESSMENTS AND MANAGEMENT OF AGITATION REQUIRING IV MEDICATIONS THAT COULD NOT BE MANAGED AT HOME AND/OR IN AN OUTPATIENT SETTING. DISCHARGE PLANNING CONTINUES.
SHELTER MONITOR WILL PROVIDE SUPPORTIVE SERVICES AND MONITOR FOR ADDITIONAL SERVICES ONCE A WEEK WHILE ON GIP LEVEL OF CARE.
[2024-10-18 19:35] VITALS: BP 122/66
[2024-10-18] MEDS: MORPHINE 100 IV (21:53)
[2024-10-19] MEDS: VALIUM INJECTION IV ×6 (02:39→21:22)
[2024-10-19 07:00] VITALS: BP 117/69
--- NOTE | 2024-10-19 08:46 | CM ---
Reviewed the chart notes.
Plan: GIP hospice appropriate.
--- NOTE | 2024-10-19 09:03 | W.PN.HOSP.TC ---
Today's Communication/Plan
-
c/w comfort care
Assessment / Plan
Assessment / Plan
# Advanced dementia with behavioral disturbance
Patient failed to show improvement despite adjusting medications by psychiatry, recommended hospice.
Continue comfort care measures only, seems sedated with morphine.
Discussed with hospice, c/w morphine drip
#fever, give rectal Tylenol.
#S/p treatment for UTI with no improvement in mentation or combativeness
Duval ordered for end-of-life care
# Type 2 diabetes
# HTN
# Hyperlipidemia
DNR
Total time spent to see the patient on the floor, examine the patient, review data and lab results, discuss treatment plan with patient, nursing staff around 35 minutes.
Physical Exam
General: slow respiratory rate
HEENT: Normocephalic, Atraumatic
Respiratory: Clear to Auscultation bilaterally
Cardiac: Normal S1/S2, Regular Rate and Rhythm
GI: Soft, Nontender, Nondistended, Normal Bowel Sounds
Extremities: No Clubbing, Cyanosis, or Edema
Neuro: sedated, did not open eyes or respond.
Psych: no agitation noted.
Anticipated Discharge: 24 - 48 hours
Subjective/Interval History
-
Date of Service: October 19, 2024
Sedated
Unresponsive
Objective Data
-
Vital Signs:
Vital Signs
Temp Pulse Resp BP Pulse Ox
98.4 F 105 9 117/69 87
10/19/24 07:00 10/19/24 07:00 10/19/24 07:00 10/19/24 07:00 10/19/24 07:00
I&O
10/18/24 10/19/24 10/20/24
06:59 06:59 06:59
Intake Total 0 / 0
Output Total 375 / 375 475 / 475
Balance -375 / -375 -475 / -475
--- NOTE | 2024-10-19 11:26 | HOSPNOTE ---
Patient still appears imminent. Decreased respirations, continues on a morphine drip appears comfortable. Will continue medicating and assessing. Patient continues to be inpatient appropriate for management of pain and agitation requiring IV
medications. Patient will be seen daily.
[2024-10-19 19:14] VITALS: BP 110/70
[2024-10-20] MEDS: VALIUM INJECTION IV ×5 (02:43→21:56)
[2024-10-20] MEDS: MORPHINE SULFATE 2 MG IV ×3 (03:33→14:29)
[2024-10-20] MEDS: VALIUM INJECTION 5 MG IV (04:16)
[2024-10-20] MEDS: ROBINUL 0.2 MG IV ×3 (04:24→14:56)
[2024-10-20 07:00] VITALS: BP 110/67
--- NOTE | 2024-10-20 08:32 | W.PN.HOSP.TC ---
Today's Communication/Plan
-
.
Assessment / Plan
Assessment / Plan
# Advanced dementia with behavioral disturbance
Patient failed to show improvement despite adjusting medications by psychiatry, recommended hospice.
Continue comfort care measures only, seems sedated with morphine.
Discussed with hospice, c/w morphine drip
#fever, give rectal Tylenol.
#S/p treatment for UTI with no improvement in mentation or combativeness
Duval ordered for end-of-life care
# Type 2 diabetes
# HTN
# Hyperlipidemia
DNR
Total time spent to see the patient on the floor, examine the patient, review data and lab results, discuss treatment plan with patient, nursing staff around 35 minutes.
Physical Exam
General: slow respiratory rate
HEENT: Normocephalic, Atraumatic
Respiratory: Clear to Auscultation bilaterally
Cardiac: Normal S1/S2, Regular Rate and Rhythm
GI: Soft, Nontender, Nondistended, Normal Bowel Sounds
Extremities: No Clubbing, Cyanosis, or Edema
Neuro: sedated, did not open eyes or respond.
Psych: no agitation noted.
Anticipated Discharge: > 48 hours
Subjective/Interval History
-
Date of Service: October 20, 2024
No chest pain
No sob
No fevers
Objective Data
-
Vital Signs:
Vital Signs
Temp Pulse Resp BP Pulse Ox
99.6 F 112 10 110/70 89
10/19/24 19:14 10/19/24 19:14 10/19/24 19:14 10/19/24 19:14 10/19/24 19:14
I&O
10/19/24 10/20/24 10/21/24
06:59 06:59 06:59
Intake Total 0 / 0 0 / 0
Output Total 475 / 475 650 / 650
Balance -475 / -475 -650 / -650
[2024-10-20] MEDS: TYLENOL/FEVERALL 650 MG RECTAL ×2 (08:57→20:07)
--- NOTE | 2024-10-20 09:37 | CM ---
Reviewed the chart notes. CM continues to be available to patient/family. Continues on GIP hospice.
--- NOTE | 2024-10-20 12:35 | HOSPNOTE ---
Patient continues to be active and continues to be inpatient appropriate. Patient is on a morphine drip mouth care was performed and patient was repositioned and washed. No family was present during visit. Patient continues to be hospice
appropriate requiring IV medications. Patient will be seen daily.
[2024-10-20] MEDS: MORPHINE 100 IV (14:32)
[2024-10-20 19:28] VITALS: BP 106/64
--- NOTE | 2024-10-20 23:48 | PTCARENOTE ---
Covering provider aware patient has fever that isn't responding after being treated with Feverall suppository and cool compresses. Will provide Feverall when due again as recommended.
--- NOTE | 2024-10-21 00:29 | W.PN.DEATH ---
Pronouncement of
-
Called to see patient to pronounce.
No spontaneous heart tones or respirations noted.
Patient not responsive to verbal stimuli.
Patient is pronounced .
Time of : 00:15
Date of : 10/21/24
Cause of : Advanced dementia, acute urinary tract infection, Type 2 diabetes mellitus, hyperlipidemia
Family Notified: Yes (Called and spoke to pt's son Toby, who will call pt's to let her know.)
--- NOTE | 2024-10-21 02:25 | PTCARENOTE ---
Five family members are here to see patient including spouse. Condolences offered. Advised to take all personal items home.
--- NOTE | 2024-10-21 09:13 | W.DCSUMMARY ---
Discharge Summary
Discharge Data
Date of Admission: 10/07/24
Date of Discharge: 10/21/24
-
Pending Results: No
Hospital Course
79 years old male with advanced dementia admitted to inpatient hospice for treatment of agitation and failure to thrive. Patient received comfort care medications including intravenous morphine and Ativan. Patient was followed by hospice nurse.
Patient peacefully on 10/21/24.
Discharge Plan
-
Patient Disposition:
Date/Time
Date/Time: 10/21/24 12:15
Discharge Date and Time
Discharge Date/Time: 10/21/24 04:32
Print Language: SPANISH
== END 2024-10-21 04:32 | disposition expired | DRG 951 ==
LOC: 2 NORTH 14:07
PROVIDERS: ADMITTING PHYSICIAN Internal Medicine
DX: Z51.5 Encounter for palliative care (principal); N39.0 Urinary tract infection, site not specified; F03.918 Unspecified dementia, unspecified severity, with other behavioral disturbance; E11.9 Type 2 diabetes mellitus without complications; E78.5 Hyperlipidemia, unspecified; R62.7 Adult failure to thrive; I10 Essential (primary) hypertension; R50.9 Fever, unspecified; Z66 Do not resuscitate
CPT/HCPCS: 82962